=== PATIENT | male | born 1955 | race Caucasian/White ===

== ENCOUNTER 2019-11-10 10:32 | Outpatient (REF) | payer MEDICARE, SELFPAY ==
[2019-11-10 13:30] LABS: MANUAL DIFF FLAG NO
[2019-11-10 13:37] LABS: Basophils Percent Auto 0.7 % (0-2); Eosinophils Absolute Auto 0.2 X10*3/uL (0.0-0.4); Eosinophils Percent Auto 3.6 % (0-4); Hematocrit 41.3 % (42-52); Hemoglobin 13.5 g/dl (14.0-18.0); Imm Gran Abs Auto 0.02 X10*3/uL (0.00-0.03); Imm Gran Pct Auto 0.3 % (0.0-0.4); Lymphocytes Absolute Auto 1.6 X10*3/uL (1.2-4.9); Lymphocytes Percent Auto 26.9 % (20-40); Mean Corpuscular HGB Conc 32.7 g/dl (31.0-36.0); Mean Corpuscular Hemoglobin 32.8 pg (27.0-33.0); Mean Corpuscular Volume 100.2 fL (80-98); Mean Platelet Volume 10.1 fL (9.4-12.4); Monocytes Absolute Auto 0.6 X10*3/uL (0.1-1.2); Monocytes Percent Auto 10.5 % (2-11); Neutrophils Absolute Auto 3.4 X10*3/uL (2.0-8.3); Platelet Count 230 X10*3/uL (160-400); Red Blood Count 4.12 X10*6/uL (4.60-5.80); Red Cell Distribution Width 13.6 % (11.0-16.0); White Blood Count 5.8 X10*3/uL (4.8-10.8)
[2019-11-10 13:47] LABS: INTERNATIONAL NORM RATIO 2.5 (0.9-1.1); Prothrombin Time 29.9 SEC (10.8-13.0)
[2019-11-10 14:23] LABS: Alanine Aminotransferase 29 U/L (0-40); Albumin Level 4.1 g/dL (3.5-5.0); Alkaline Phosphatase 62 U/L (39-117); Anion Gap 12 (12-20); Aspartate Amino Transferase 27 U/L (5-37); Bilirubin Total 0.7 mg/dL (0.0-1.0); Blood Urea Nitrogen 23 mg/dL (9-16); Carbon Dioxide 28 mmol/L (22-29); Chloride 105 mmol/L (96-108); Estimated Glomerular Filt Rate > 60; Glucose Random 96 mg/dL (60-115); Potassium 5.5 mmol/l (3.3-5.1); Sodium 139 mmol/L (135-145); Total Protein 6.6 g/dL (6.5-8.0)
[2019-11-10 15:39] LABS: PSA,Total (Free>4and<10) 4.37 ng/mL (0.00-4.00)
[2019-11-13 14:37] LABS: Free Prostate Spec Ag 1.1 ng/mL; Percent Free Prostate Spec Ag 26 % (calc) (>25); Prostate Specific Ag Total 4.2 ng/mL (< OR = 4.0)
== END 2019-11-10 10:33 | disposition home or self-care (01) ==
LOC: HO.10HDL 10:32
PROVIDERS: PCP Internal Medicine; Visit Provider Internal Medicine
DX: I48.91 Unspecified atrial fibrillation (principal)
CPT/HCPCS: 36415; 80053; 84153; 85025; 85610

== ENCOUNTER 2019-12-15 08:00 | Outpatient (REF) | payer MEDICARE, SELFPAY ==
[2019-12-15 10:35] LABS: INTERNATIONAL NORM RATIO 2.4 (0.9-1.1); Prothrombin Time 29.2 SEC (10.8-13.0)
== END 2019-12-15 08:01 | disposition home or self-care (01) ==
LOC: HO.10HDL 08:00
PROVIDERS: Visit Provider Internal Medicine
DX: I48.91 Unspecified atrial fibrillation (principal); Z95.2 Presence of prosthetic heart valve
CPT/HCPCS: 36415; 85610

== ENCOUNTER 2020-01-12 08:20 | Outpatient (REF) | payer MEDICARE, SELFPAY ==
[2020-01-12 10:21] LABS: INTERNATIONAL NORM RATIO 2.3 (0.9-1.1); Prothrombin Time 27.9 SEC (10.8-13.0)
== END 2020-01-12 08:21 | disposition home or self-care (01) ==
LOC: HO.10HDL 08:20
PROVIDERS: Visit Provider Internal Medicine
DX: I48.91 Unspecified atrial fibrillation (principal); Z95.2 Presence of prosthetic heart valve
CPT/HCPCS: 36415; 85610

== ENCOUNTER 2020-02-12 08:14 | Outpatient (REF) | payer MEDICARE, SELFPAY ==
[2020-02-12 11:18] LABS: Prothrombin Time 24.5 SEC (10.8-13.0)
== END 2020-02-12 08:15 | disposition home or self-care (01) ==
LOC: HO.10HDL 08:14
PROVIDERS: PCP Internal Medicine; Visit Provider Internal Medicine
DX: I48.91 Unspecified atrial fibrillation (principal); Z95.2 Presence of prosthetic heart valve; Z79.01 Long term (current) use of anticoagulants
CPT/HCPCS: 36415; 85610

== ENCOUNTER 2020-02-23 08:24 | Outpatient (REF) | payer MEDICARE, SELFPAY ==
[2020-02-23 10:36] LABS: INTERNATIONAL NORM RATIO 2.9 (0.9-1.1); Prothrombin Time 35.3 SEC (10.8-13.0)
== END 2020-02-23 08:25 | disposition home or self-care (01) ==
LOC: HO.10HDL 08:24
PROVIDERS: Visit Provider Internal Medicine
DX: I48.91 Unspecified atrial fibrillation (principal); Z95.2 Presence of prosthetic heart valve
CPT/HCPCS: 36415; 85610

== ENCOUNTER 2020-03-15 07:52 | Outpatient (REF) | payer MEDICARE, SELFPAY ==
[2020-03-15 10:18] LABS: INTERNATIONAL NORM RATIO 2.3 (0.9-1.1); Prothrombin Time 27.4 SEC (10.8-13.0)
== END 2020-03-15 07:53 | disposition home or self-care (01) ==
LOC: HO.10HDLR 07:52
PROVIDERS: Visit Provider Internal Medicine
DX: I48.91 Unspecified atrial fibrillation (principal); Z95.2 Presence of prosthetic heart valve
CPT/HCPCS: 36415; 85610

== ENCOUNTER 2020-04-11 07:51 | Outpatient (REF) | payer MEDICARE, SELFPAY ==
[2020-04-11 10:40] LABS: INTERNATIONAL NORM RATIO 2.2 (0.9-1.1)
== END 2020-04-11 07:52 | disposition home or self-care (01) ==
LOC: HO.10HDL 07:51
PROVIDERS: Visit Provider Internal Medicine
DX: I48.91 Unspecified atrial fibrillation (principal); Z95.2 Presence of prosthetic heart valve
CPT/HCPCS: 36415; 85610

== ENCOUNTER 2020-05-10 07:46 | Outpatient (REF) | payer MEDICARE, BC, SELFPAY ==
[2020-05-10 10:48] LABS: MANUAL DIFF FLAG NO
[2020-05-10 11:01] LABS: Basophils Percent Auto 0.5 % (0-2); Eosinophils Absolute Auto 0.3 X10*3/uL (0.0-0.4); Eosinophils Percent Auto 4.4 % (0-4); Hematocrit 44.9 % (42-52); Hemoglobin 14.8 g/dl (14.0-18.0); Imm Gran Abs Auto 0.02 X10*3/uL (0.00-0.03); Imm Gran Pct Auto 0.3 % (0.0-0.4); Lymphocytes Absolute Auto 1.4 X10*3/uL (1.2-4.9); Lymphocytes Percent Auto 24.2 % (20-40); Mean Corpuscular Volume 97.2 fL (80-98); Monocytes Absolute Auto 0.5 X10*3/uL (0.1-1.2); Monocytes Percent Auto 9.1 % (2-11); Neutrophils Absolute Auto 3.7 X10*3/uL (2.0-8.3); Neutrophils Percent Auto 61.5 % (45-73); Platelet Count 219 X10*3/uL (160-400); Red Blood Count 4.62 X10*6/uL (4.60-5.80); Red Cell Distribution Width 13.2 % (11.0-16.0); White Blood Count 5.9 X10*3/uL (4.8-10.8)
[2020-05-10 11:05] LABS: INTERNATIONAL NORM RATIO 2.2 (0.9-1.1); Prothrombin Time 26.8 SEC (10.8-13.0)
[2020-05-10 11:28] LABS: Alanine Aminotransferase 30 U/L (0-40); Albumin Level 4.2 g/dL (3.5-5.0); Alkaline Phosphatase 69 U/L (39-117); Anion Gap 12 (12-20); Aspartate Amino Transferase 23 U/L (5-37); Bilirubin Total 0.3 mg/dL (0.0-1.0); Blood Urea Nitrogen 24 mg/dL (9-16); Calcium 8.8 mg/dL (8.4-10.2); Carbon Dioxide 28 mmol/L (22-29); Chloride 105 mmol/L (96-108); Cholesterol 156 mg/dL; Estimated Glomerular Filt Rate > 60; Glucose Fasting 96 mg/dL (60-99); HDL Cholesterol 38 mg/dL; LDL Cholesterol Calculated 94 mg/dl; Potassium 4.8 mmol/L (3.3-5.1); Sodium 140 mmol/L (135-145); Total Protein 6.8 g/dL (6.5-8.0); Triglycerides 124 mg/dL
== END 2020-05-10 07:47 | disposition home or self-care (01) ==
LOC: HO.10HDLR 07:46
PROVIDERS: Visit Provider Internal Medicine
DX: I48.91 Unspecified atrial fibrillation (principal); I10 Essential (primary) hypertension; E78.00 Pure hypercholesterolemia, unspecified; Z95.2 Presence of prosthetic heart valve
CPT/HCPCS: 36415; 80053; 80061; 85025; 85610

== ENCOUNTER 2020-06-17 08:56 | Outpatient (REF) | payer MEDICARE, BC, SELFPAY ==
[2020-06-17 10:17] LABS: INTERNATIONAL NORM RATIO 3.4 (0.9-1.1); Prothrombin Time 41.4 SEC (10.8-13.0)
== END 2020-06-17 08:57 | disposition home or self-care (01) ==
LOC: HO.10HDL 08:56
PROVIDERS: Visit Provider Internal Medicine
DX: I48.91 Unspecified atrial fibrillation (principal); Z95.2 Presence of prosthetic heart valve
CPT/HCPCS: 36415; 85610

== ENCOUNTER 2020-07-15 08:38 | Outpatient (REF) | payer MEDICARE, BC, SELFPAY ==
[2020-07-15 10:42] LABS: INTERNATIONAL NORM RATIO 3.3 (0.9-1.1); Prothrombin Time 40.2 SEC (10.8-13.0)
== END 2020-07-15 08:39 | disposition home or self-care (01) ==
LOC: HO.10HDL 08:38
PROVIDERS: Visit Provider Internal Medicine
DX: I48.20 Chronic atrial fibrillation, unspecified (principal)
CPT/HCPCS: 36415; 85610

== ENCOUNTER 2020-08-14 08:42 | Outpatient (REF) | payer MEDICARE, BC, SELFPAY ==
[2020-08-14 10:20] LABS: INTERNATIONAL NORM RATIO 3.6 (0.9-1.1); Prothrombin Time 42.5 SEC (9.9-13.0)
== END 2020-08-14 08:43 | disposition home or self-care (01) ==
LOC: HO.10HDL 08:42
PROVIDERS: Visit Provider Internal Medicine
DX: I48.20 Chronic atrial fibrillation, unspecified (principal)
CPT/HCPCS: 36415; 85610

== ENCOUNTER 2020-09-17 12:30 | Outpatient (REF) | payer MEDICARE, BC, SELFPAY ==
[2020-09-17 13:26] LABS: INTERNATIONAL NORM RATIO 3.5 (0.9-1.1); Prothrombin Time 40.3 SEC (9.9-13.0)
== END 2020-09-17 12:31 | disposition home or self-care (01) ==
LOC: HO.10HDL 12:30
PROVIDERS: Visit Provider Internal Medicine
DX: I48.20 Chronic atrial fibrillation, unspecified (principal)
CPT/HCPCS: 36415; 85610

== ENCOUNTER 2020-10-09 10:23 | Outpatient (REF) | payer MEDICARE, BC, SELFPAY ==
[2020-10-09 10:56] LABS: INTERNATIONAL NORM RATIO 2.6 (0.9-1.1); Prothrombin Time 30.1 SEC (9.9-13.0)
== END 2020-10-09 10:24 | disposition home or self-care (01) ==
LOC: HO.10HDLR 10:23
PROVIDERS: Visit Provider Internal Medicine
DX: I48.20 Chronic atrial fibrillation, unspecified (principal); Z95.2 Presence of prosthetic heart valve
CPT/HCPCS: 36415; 85610

== ENCOUNTER 2020-10-11 09:34 | Outpatient (REF) | payer MEDICARE, BC, SELFPAY ==
[2020-10-11 10:29] LABS: MANUAL DIFF FLAG NO
[2020-10-11 10:37] LABS: Basophils Percent Auto 0.7 % (0-2); Eosinophils Absolute Auto 0.2 X10*3/uL (0.0-0.4); Eosinophils Percent Auto 3.7 % (0-4); Hematocrit 41.2 % (42-52); Hemoglobin 13.8 g/dl (14.0-18.0); Imm Gran Abs Auto 0.01 X10*3/uL (0.00-0.03); Imm Gran Pct Auto 0.2 % (0.0-0.4); Lymphocytes Absolute Auto 1.6 X10*3/uL (1.2-4.9); Lymphocytes Percent Auto 26.3 % (20-40); Mean Corpuscular HGB Conc 33.5 g/dl (31.0-36.0); Mean Corpuscular Hemoglobin 31.9 pg (27.0-33.0); Mean Corpuscular Volume 95.4 fL (80-98); Mean Platelet Volume 9.7 fL (9.4-12.4); Monocytes Absolute Auto 0.6 X10*3/uL (0.1-1.2); Monocytes Percent Auto 9.4 % (2-11); Neutrophils Absolute Auto 3.5 X10*3/uL (2.0-8.3); Neutrophils Percent Auto 59.7 % (45-73); Platelet Count 200 X10*3/uL (160-400); Red Blood Count 4.32 X10*6/uL (4.60-5.80); Red Cell Distribution Width 13.1 % (11.0-16.0); White Blood Count 5.9 X10*3/uL (4.8-10.8)
[2020-10-11 10:56] LABS: Alanine Aminotransferase 20 U/L (0-40); Alkaline Phosphatase 66 U/L (39-117); Anion Gap 11 (12-20); Aspartate Amino Transferase 28 U/L (5-37); Bilirubin Total 0.8 mg/dL (0.0-1.0); Blood Urea Nitrogen 19 mg/dL (9-16); Calcium 9.1 mg/dL (8.4-10.2); Carbon Dioxide 28 mmol/L (22-29); Chloride 105 mmol/L (96-108); Estimated Glomerular Filt Rate > 60; Glucose Random 101 mg/dL (60-115); Potassium 4.9 mmol/L (3.3-5.1); Sodium 139 mmol/L (135-145); Total Protein 6.5 g/dL (6.5-8.0)
== END 2020-10-11 09:35 | disposition home or self-care (01) ==
LOC: HO.10HDL 09:34
PROVIDERS: Visit Provider Internal Medicine
DX: I48.91 Unspecified atrial fibrillation (principal); I10 Essential (primary) hypertension; M19.90 Unspecified osteoarthritis, unspecified site
CPT/HCPCS: 36415; 80053; 85025

== ENCOUNTER 2020-11-08 08:07 | Outpatient (REF) | payer MEDICARE, BC, SELFPAY ==
[2020-11-08 10:30] LABS: INTERNATIONAL NORM RATIO 3.3 (0.9-1.1); Prothrombin Time 38.1 SEC (9.9-13.0)
== END 2020-11-08 08:08 | disposition home or self-care (01) ==
LOC: HO.10HDLR 08:07
PROVIDERS: Visit Provider Internal Medicine
DX: I48.20 Chronic atrial fibrillation, unspecified (principal)
CPT/HCPCS: 36415; 85610

== ENCOUNTER 2020-12-13 08:41 | Outpatient (REF) | payer MEDICARE, BC, SELFPAY ==
[2020-12-13 10:40] LABS: INTERNATIONAL NORM RATIO 2.3 (0.9-1.1); Prothrombin Time 26.2 SEC (9.9-13.0)
== END 2020-12-13 08:42 | disposition home or self-care (01) ==
LOC: HO.10HDLR 08:41
PROVIDERS: Visit Provider Internal Medicine
DX: I48.20 Chronic atrial fibrillation, unspecified (principal)
CPT/HCPCS: 36415; 85610

== ENCOUNTER 2021-01-17 08:25 | Outpatient (REF) | payer MEDICARE, BC, SELFPAY ==
[2021-01-17 12:24] LABS: INTERNATIONAL NORM RATIO 1.6 (0.9-1.1); Prothrombin Time 17.9 SEC (9.9-13.0)
== END 2021-01-17 08:26 | disposition home or self-care (01) ==
LOC: HO.10HDLR 08:25
PROVIDERS: Visit Provider Internal Medicine
DX: I48.20 Chronic atrial fibrillation, unspecified (principal)
CPT/HCPCS: 36415; 85610

== ENCOUNTER 2021-02-17 08:12 | Outpatient (REF) | payer MEDICARE, BC, SELFPAY ==
[2021-02-17 10:33] LABS: INTERNATIONAL NORM RATIO 4.4 (0.9-1.1); Prothrombin Time 51.8 SEC (9.9-13.0)
== END 2021-02-17 08:13 | disposition home or self-care (01) ==
LOC: HO.10HDLR 08:12
PROVIDERS: Visit Provider Internal Medicine
DX: I48.20 Chronic atrial fibrillation, unspecified (principal)
CPT/HCPCS: 36415; 85610

== ENCOUNTER 2021-02-27 08:42 | Outpatient (REF) | payer MEDICARE, BC, SELFPAY ==
[2021-02-27 10:52] LABS: INTERNATIONAL NORM RATIO 2.5 (0.9-1.1); Prothrombin Time 29.2 SEC (9.9-13.0)
== END 2021-02-27 08:43 | disposition home or self-care (01) ==
LOC: HO.10HDL 08:42
PROVIDERS: Visit Provider Internal Medicine
DX: I48.20 Chronic atrial fibrillation, unspecified (principal)
CPT/HCPCS: 36415; 85610

== ENCOUNTER 2021-03-13 08:52 | Outpatient (REF) | payer MEDICARE, BC, SELFPAY ==
[2021-03-13 10:53] LABS: INTERNATIONAL NORM RATIO 2.6 (0.9-1.1); Prothrombin Time 29.9 SEC (9.9-13.0)
== END 2021-03-13 08:53 | disposition home or self-care (01) ==
LOC: HO.10HDLR 08:52
PROVIDERS: Visit Provider Internal Medicine
DX: I48.20 Chronic atrial fibrillation, unspecified (principal)
CPT/HCPCS: 36415; 85610

== ENCOUNTER 2021-04-10 10:49 | Outpatient (REF) | payer MEDICARE, BC, SELFPAY ==
[2021-04-10 13:50] LABS: INTERNATIONAL NORM RATIO 2.2 (0.9-1.1); Prothrombin Time 25.6 SEC (9.9-13.0)
== END 2021-04-10 10:50 | disposition home or self-care (01) ==
LOC: HO.10HDLR 10:49
PROVIDERS: Visit Provider Internal Medicine
DX: I48.91 Unspecified atrial fibrillation (principal); Z95.2 Presence of prosthetic heart valve
CPT/HCPCS: 36415; 85610

== ENCOUNTER 2021-04-11 10:00 | Outpatient (REF) | payer MEDICARE, BC, SELFPAY ==
[2021-04-11 12:06] LABS: MANUAL DIFF FLAG NO
[2021-04-11 12:08] LABS: Basophils Percent Auto 0.7 % (0-2); Eosinophils Absolute Auto 0.1 X10*3/uL (0.0-0.4); Eosinophils Percent Auto 2.9 % (0-4); Hematocrit 43.1 % (42.0-52.0); Hemoglobin 14.1 g/dl (14.0-18.0); Imm Gran Abs Auto 0.01 X10*3/uL (0.00-0.03); Imm Gran Pct Auto 0.2 % (0.0-0.4); Lymphocytes Absolute Auto 1.4 X10*3/uL (1.2-4.9); Lymphocytes Percent Auto 31.5 % (20-40); Mean Corpuscular HGB Conc 32.7 g/dl (31.0-36.0); Mean Corpuscular Hemoglobin 31.1 pg (27.0-33.0); Mean Corpuscular Volume 95.1 fL (80.0-98.0); Mean Platelet Volume 9.7 fL (9.4-12.4); Monocytes Absolute Auto 0.6 X10*3/uL (0.1-1.2); Monocytes Percent Auto 13.4 % (2-11); Neutrophils Absolute Auto 2.3 x10*3/uL (2.0-8.3); Neutrophils Percent Auto 51.3 % (45-73); Platelet Count 210 X10*3/uL (160-400); Red Blood Count 4.53 X10*6/uL (4.60-5.80); Red Cell Distribution Width 14.6 % (11.0-16.0); White Blood Count 4.4 X10*3/uL (4.8-10.8)
[2021-04-11 12:35] LABS: INTERNATIONAL NORM RATIO 2.2 (0.9-1.1); Prothrombin Time 24.9 SEC (9.9-13.0)
[2021-04-11 12:36] LABS: Alanine Aminotransferase 31 U/L (0-40); Alkaline Phosphatase 69 U/L (39-117); Anion Gap 10 (12-20); Aspartate Amino Transferase 31 U/L (5-37); Bilirubin Total 0.7 mg/dL (0.0-1.0); Blood Urea Nitrogen 20 mg/dL (9-16); Calcium 9.1 mg/dL (8.4-10.2); Carbon Dioxide 27 mmol/L (22-29); Chloride 106 mmol/L (96-108); Estimated Glomerular Filt Rate > 60; Glucose Random 100 mg/dL (60-115); Potassium 5.3 mmol/L (3.3-5.1); Sodium 138 mmol/L (135-145); Total Protein 6.8 g/dL (6.5-8.0)
== END 2021-04-11 10:01 | disposition home or self-care (01) ==
LOC: HO.10HDL 10:00
PROVIDERS: Visit Provider Internal Medicine
DX: I48.91 Unspecified atrial fibrillation (principal); M19.90 Unspecified osteoarthritis, unspecified site; I10 Essential (primary) hypertension; K57.90 Diverticulosis of intestine, part unspecified, without perforation or abscess without bleeding
CPT/HCPCS: 36415; 80053; 85025; 85610

== ENCOUNTER 2021-05-09 10:16 | Outpatient (REF) | payer MEDICARE, BC, SELFPAY ==
[2021-05-09 10:48] LABS: INTERNATIONAL NORM RATIO 2.6 (0.9-1.1); Prothrombin Time 30.6 SEC (9.9-13.0)
== END 2021-05-09 10:17 | disposition home or self-care (01) ==
LOC: HO.LABR 10:16
PROVIDERS: PCP Internal Medicine; Visit Provider Internal Medicine
DX: I48.91 Unspecified atrial fibrillation (principal); Z95.2 Presence of prosthetic heart valve
CPT/HCPCS: 36415; 85610

== ENCOUNTER 2021-05-16 10:44 | Outpatient (REF) | payer MEDICARE, BC, SELFPAY ==
--- NOTE | 2021-05-16 10:51 | EMG_ITS ---
This is a 65-year-old man with a history of left upper extremity numbness in the 5th finger. He has had some ulnar surgery in the past. PHYSICAL EXAMINATION: There is no atrophy or fasciculations. Normal strength and sensation. IMPRESSION: Ulnar nerve entrapment. Nerve conduction EMG study: Mild compression palsy of the left ulnar nerve at the elbow. Normal EMG of the left C7-T1 innervated muscles. MD GORDO John/NEMESIO / [id number]
== END 2021-05-16 10:45 | disposition home or self-care (01) ==
LOC: HO.NEURO 10:44
PROVIDERS: PCP Internal Medicine; Visit Provider Internal Medicine
DX: G56.02 Carpal tunnel syndrome, left upper limb (principal)
CPT/HCPCS: 95885; 95910

== ENCOUNTER 2021-06-11 08:13 | Outpatient (REF) | payer MEDICARE, BC, SELFPAY ==
[2021-06-11 10:28] LABS: INTERNATIONAL NORM RATIO 3.2 (0.9-1.1); Prothrombin Time 37.7 SEC (9.9-13.0)
== END 2021-06-11 08:14 | disposition home or self-care (01) ==
LOC: HO.10HDL 08:13
PROVIDERS: Visit Provider Internal Medicine
DX: I48.91 Unspecified atrial fibrillation (principal); Z95.2 Presence of prosthetic heart valve
CPT/HCPCS: 36415; 85610

== ENCOUNTER 2021-07-14 09:41 | Outpatient (REF) | payer MEDICARE, BC, SELFPAY ==
[2021-07-14 10:42] LABS: INTERNATIONAL NORM RATIO 3.2 (0.9-1.1); Prothrombin Time 36.8 SEC (9.9-13.0)
[2021-07-14 10:51] LABS: Alanine Aminotransferase 26 U/L (0-40); Albumin Level 4.3 g/dL (3.5-5.0); Alkaline Phosphatase 85 U/L (39-117); Anion Gap 14 (12-20); Aspartate Amino Transferase 31 U/L (5-37); Blood Urea Nitrogen 20 mg/dL (9-16); Calcium 9.3 mg/dL (8.4-10.2); Carbon Dioxide 26 mmol/L (22-29); Chloride 105 mmol/L (96-108); Estimated Glomerular Filt Rate > 60; Glucose Random 107 mg/dL (60-115); Potassium 5.8 mmol/L (3.3-5.1); Sodium 139 mmol/L (135-145); Total Protein 7.4 g/dL (6.5-8.0)
== END 2021-07-14 09:42 | disposition home or self-care (01) ==
LOC: HO.10HDL 09:41
PROVIDERS: Visit Provider Internal Medicine
DX: I48.91 Unspecified atrial fibrillation (principal); M19.90 Unspecified osteoarthritis, unspecified site; I10 Essential (primary) hypertension; K57.90 Diverticulosis of intestine, part unspecified, without perforation or abscess without bleeding; Z95.2 Presence of prosthetic heart valve
CPT/HCPCS: 36415; 80053; 85610

== ENCOUNTER 2021-07-30 09:14 | Outpatient (REF) | payer MEDICARE, BC, SELFPAY ==
[2021-07-30 10:47] LABS: Anion Gap 10 (12-20); Blood Urea Nitrogen 20 mg/dL (9-16); Calcium 8.9 mg/dL (8.4-10.2); Carbon Dioxide 28 mmol/L (22-29); Chloride 106 mmol/L (96-108); Estimated Glomerular Filt Rate > 60; Glucose Random 106 mg/dL (60-115); Potassium 4.6 mmol/L (3.3-5.1); Sodium 139 mmol/L (135-145)
[2021-07-30 11:04] LABS: INTERNATIONAL NORM RATIO 2.8 (0.9-1.1); Prothrombin Time 32.6 SEC (9.9-13.0)
== END 2021-07-30 09:15 | disposition home or self-care (01) ==
LOC: HO.10HDLR 09:14
PROVIDERS: Visit Provider Internal Medicine
DX: I48.91 Unspecified atrial fibrillation (principal); I10 Essential (primary) hypertension; M19.90 Unspecified osteoarthritis, unspecified site
CPT/HCPCS: 36415; 80048; 85610

== ENCOUNTER 2021-08-15 10:04 | Outpatient (REF) | payer MEDICARE, BC, SELFPAY ==
[2021-08-15 10:43] LABS: INTERNATIONAL NORM RATIO 3.4 (0.9-1.1); Prothrombin Time 40.6 SEC (10.0-13.1)
== END 2021-08-15 10:05 | disposition home or self-care (01) ==
LOC: HO.10HDL 10:04
PROVIDERS: Visit Provider Internal Medicine
DX: I48.91 Unspecified atrial fibrillation (principal)
CPT/HCPCS: 36415; 85610

== ENCOUNTER 2021-09-01 07:43 | Outpatient (REF) | payer MEDICARE, BC, SELFPAY ==
[2021-09-01 10:21] LABS: MANUAL DIFF FLAG NO
[2021-09-01 10:23] LABS: Basophils Percent Auto 0.6 % (0-2); Eosinophils Absolute Auto 0.2 X10*3/uL (0.0-0.4); Hematocrit 41.4 % (42.0-52.0); Imm Gran Abs Auto 0.02 X10*3/uL (0.00-0.03); Imm Gran Pct Auto 0.4 % (0.0-0.4); Lymphocytes Absolute Auto 1.5 X10*3/uL (1.2-4.9); Lymphocytes Percent Auto 27.9 % (20-40); Mean Corpuscular HGB Conc 33.8 g/dl (31.0-36.0); Mean Corpuscular Hemoglobin 32.6 pg (27.0-33.0); Mean Corpuscular Volume 96.5 fL (80.0-98.0); Monocytes Absolute Auto 0.6 X10*3/uL (0.1-1.2); Monocytes Percent Auto 10.6 % (2-11); Neutrophils Absolute Auto 2.9 x10*3/uL (2.0-8.3); Neutrophils Percent Auto 56.5 % (45-73); Platelet Count 206 X10*3/uL (160-400); Red Blood Count 4.29 X10*6/uL (4.60-5.80); White Blood Count 5.2 X10*3/uL (4.8-10.8)
[2021-09-01 10:37] LABS: INTERNATIONAL NORM RATIO 3.2 (0.9-1.1); Prothrombin Time 38.5 SEC (10.0-13.1)
[2021-09-01 10:53] LABS: Alanine Aminotransferase 20 U/L (0-40); Albumin Level 4.1 g/dL (3.5-5.0); Alkaline Phosphatase 69 U/L (39-117); Anion Gap 9 (12-20); Aspartate Amino Transferase 24 U/L (5-37); Bilirubin Total 0.6 mg/dL (0.0-1.0); Blood Urea Nitrogen 26 mg/dL (9-16); Carbon Dioxide 28 mmol/L (22-29); Chloride 106 mmol/L (96-108); Cholesterol 157 mg/dL; Estimated Glomerular Filt Rate > 60; Glucose Fasting 98 mg/dL (60-99); HDL Cholesterol 37 mg/dL; LDL Cholesterol Calculated 90 mg/dl; Potassium 4.9 mmol/L (3.3-5.1); Sodium 138 mmol/L (135-145); Triglycerides 152 mg/dL
== END 2021-09-01 07:44 | disposition home or self-care (01) ==
LOC: HO.10HDLR 07:43
PROVIDERS: Visit Provider Internal Medicine
DX: E78.00 Pure hypercholesterolemia, unspecified (principal); I48.91 Unspecified atrial fibrillation
CPT/HCPCS: 36415; 80053; 80061; 85025; 85610

== ENCOUNTER 2021-10-16 09:28 | Outpatient (REF) | payer MEDICARE, BC, SELFPAY ==
[2021-10-16 10:33] LABS: INTERNATIONAL NORM RATIO 2.4 (0.9-1.1)
== END 2021-10-16 09:29 | disposition home or self-care (01) ==
LOC: HO.10HDLR 09:28
PROVIDERS: Visit Provider Internal Medicine
DX: I48.91 Unspecified atrial fibrillation (principal)
CPT/HCPCS: 36415; 85610

== ENCOUNTER 2021-11-14 09:50 | Outpatient (REF) | payer MEDICARE, BC, SELFPAY ==
[2021-11-14 10:43] LABS: INTERNATIONAL NORM RATIO 3.2 (0.9-1.1); Prothrombin Time 38.9 SEC (10.0-13.1)
== END 2021-11-14 09:51 | disposition home or self-care (01) ==
LOC: HO.10HDLR 09:50
PROVIDERS: Visit Provider Internal Medicine
DX: I48.91 Unspecified atrial fibrillation (principal)
CPT/HCPCS: 36415; 85610

== ENCOUNTER 2021-12-12 07:54 | Outpatient (REF) | payer MEDICARE, BC, SELFPAY ==
[2021-12-12 10:52] LABS: INTERNATIONAL NORM RATIO 2.7 (0.9-1.1); Prothrombin Time 32.3 SEC (10.0-13.1)
== END 2021-12-12 07:55 | disposition home or self-care (01) ==
LOC: HO.10HDLR 07:54
PROVIDERS: Visit Provider Internal Medicine
DX: I48.91 Unspecified atrial fibrillation (principal)
CPT/HCPCS: 36415; 85610

== ENCOUNTER 2022-01-09 10:10 | Outpatient (REF) | payer MEDICARE, BC, SELFPAY ==
[2022-01-09 10:41] LABS: INTERNATIONAL NORM RATIO 3.4 (0.9-1.1)
== END 2022-01-09 10:11 | disposition home or self-care (01) ==
LOC: HO.10HDLR 10:10
PROVIDERS: Visit Provider Internal Medicine
DX: I48.91 Unspecified atrial fibrillation (principal)
CPT/HCPCS: 36415; 85610

== ENCOUNTER 2022-02-13 08:32 | Outpatient (REF) | payer MEDICARE, BC, SELFPAY ==
[2022-02-13 10:41] LABS: INTERNATIONAL NORM RATIO 2.7 (0.9-1.1); Prothrombin Time 32.3 SEC (10.0-13.1)
== END 2022-02-13 08:33 | disposition home or self-care (01) ==
LOC: HO.10HDLR 08:32
PROVIDERS: Visit Provider Internal Medicine
DX: I48.91 Unspecified atrial fibrillation (principal)
CPT/HCPCS: 36415; 85610

== ENCOUNTER 2022-03-17 10:01 | Outpatient (REF) | payer MEDICARE, BC, SELFPAY | END 2022-03-17 10:02 | disposition home or self-care (01) | LOC: HO.10HDL 10:01 | PROVIDERS: Visit Provider Internal Medicine | DX: Z13.89 Encounter for screening for other disorder (principal) | CPT/HCPCS: 36415 ==

== ENCOUNTER 2022-03-23 09:05 | Outpatient (REF) | payer MEDICARE, BC, SELFPAY ==
[2022-03-23 10:54] LABS: INTERNATIONAL NORM RATIO 3.5 (0.9-1.1); Prothrombin Time 42.6 SEC (10.0-13.1)
== END 2022-03-23 09:06 | disposition home or self-care (01) ==
LOC: HO.10HDLR 09:05
PROVIDERS: Visit Provider Internal Medicine
DX: I48.91 Unspecified atrial fibrillation (principal)
CPT/HCPCS: 36415; 85610

== ENCOUNTER 2022-04-10 10:24 | Outpatient (REF) | payer MEDICARE, BC, SELFPAY ==
[2022-04-10 13:59] LABS: MANUAL DIFF FLAG NO
[2022-04-10 14:37] LABS: Basophils Percent Auto 0.5 % (0-2); Eosinophils Absolute Auto 0.2 X10*3/uL (0.0-0.4); Eosinophils Percent Auto 2.6 % (0-4); Hematocrit 44.1 % (42.0-52.0); Hemoglobin 14.7 g/dl (14.0-18.0); Imm Gran Abs Auto 0.02 X10*3/uL (0.00-0.03); Imm Gran Pct Auto 0.4 % (0.0-0.4); Lymphocytes Absolute Auto 1.5 X10*3/uL (1.2-4.9); Lymphocytes Percent Auto 25.6 % (20-40); Mean Corpuscular HGB Conc 33.3 g/dl (31.0-36.0); Mean Corpuscular Hemoglobin 32.2 pg (27.0-33.0); Mean Corpuscular Volume 96.5 fL (80.0-98.0); Mean Platelet Volume 9.6 fL (9.4-12.4); Monocytes Absolute Auto 0.6 X10*3/uL (0.1-1.2); Monocytes Percent Auto 10.4 % (2-11); Neutrophils Absolute Auto 3.5 x10*3/uL (2.0-8.3); Neutrophils Percent Auto 60.5 % (45-73); Platelet Count 248 X10*3/uL (160-400); Red Blood Count 4.57 X10*6/uL (4.60-5.80); Red Cell Distribution Width 13.7 % (11.0-16.0); White Blood Count 5.7 X10*3/uL (4.8-10.8)
[2022-04-10 15:03] LABS: INTERNATIONAL NORM RATIO 2.6 (0.9-1.1)
[2022-04-10 15:14] LABS: Alanine Aminotransferase 26 U/L (0-40); Albumin Level 4.1 g/dL (3.5-5.0); Alkaline Phosphatase 77 U/L (39-117); Anion Gap 11 (12-20); Aspartate Amino Transferase 28 U/L (5-37); Bilirubin Total 0.9 mg/dL (0.0-1.0); Blood Urea Nitrogen 19 mg/dL (9-16); Calcium 9.1 mg/dL (8.4-10.2); Carbon Dioxide 28 mmol/L (22-29); Chloride 104 mmol/L (96-108); Estimated Glomerular Filt Rate > 60; Glucose Random 97 mg/dL (60-115); Potassium 4.9 mmol/L (3.3-5.1); Sodium 138 mmol/L (135-145); Total Protein 7.1 g/dL (6.5-8.0)
== END 2022-04-10 10:25 | disposition home or self-care (01) ==
LOC: HO.10HDL 10:24
PROVIDERS: Visit Provider Internal Medicine
DX: I48.91 Unspecified atrial fibrillation (principal); I10 Essential (primary) hypertension; Z95.2 Presence of prosthetic heart valve; M19.90 Unspecified osteoarthritis, unspecified site
CPT/HCPCS: 36415; 80053; 85025; 85610

== ENCOUNTER 2022-05-01 14:37 | Outpatient (REF) | payer MEDICARE, BC, SELFPAY ==
--- NOTE | ~2022-05-01 | XR_ITS ---
EXAMINATION: XR SHOULDER, LEFT CLINICAL INFORMATION: Pain. COMPARISON: None available. TECHNIQUE: AP external rotation, Grashey, scapular Y, and axillary views of the left shoulder. FINDINGS: Bony alignment and mineralization are normal. The left glenohumeral joint is intact and shows mild peripheral osteophyte formation. The acromioclavicular and coracoclavicular intervals are normal. There is moderately severe osteoarthritic change of the acromioclavicular joint, with dense periarticular soft tissue calcification. There is a distal acromial osteophyte. There is calcific tendinitis of the left rotator cuff insertion. No fracture or dislocation is seen. There is no foreign body. No left pneumothorax is seen. There are intact sternotomy wires. XR/XR shoulder LT min 2V IMPRESSION: 1. There is mild osteoarthritic change of the left glenohumeral joint, and moderately severe osteoarthritic changes seen of the left coracoclavicular joint. 2. There is calcific tendinitis of the left rotator cuff insertion.
== END 2022-05-01 14:38 | disposition home or self-care (01) ==
LOC: HO.XRAY 14:37
PROVIDERS: PCP Internal Medicine; Visit Provider Internal Medicine
DX: M25.512 Pain in left shoulder (principal)
CPT/HCPCS: 73030

== ENCOUNTER 2022-05-13 07:31 | Outpatient (REF) | payer MEDICARE, BC, SELFPAY ==
[2022-05-13 10:59] LABS: INTERNATIONAL NORM RATIO 2.9 (0.9-1.1); Prothrombin Time 34.4 SEC (10.0-13.1)
== END 2022-05-13 07:32 | disposition home or self-care (01) ==
LOC: HO.10HDL 07:31
PROVIDERS: Visit Provider Internal Medicine
DX: I48.91 Unspecified atrial fibrillation (principal)
CPT/HCPCS: 36415; 85610

== ENCOUNTER 2022-06-09 10:57 | Outpatient (REF) | payer MEDICARE, BC, SELFPAY ==
[2022-06-09 11:45] LABS: INTERNATIONAL NORM RATIO 3.1 (0.9-1.1); Prothrombin Time 37.5 SEC (10.0-13.1)
== END 2022-06-09 10:58 | disposition home or self-care (01) ==
LOC: HO.LAB 10:57
PROVIDERS: PCP Internal Medicine; Visit Provider Internal Medicine
DX: I48.91 Unspecified atrial fibrillation (principal)
CPT/HCPCS: 36415; 85610

== ENCOUNTER → 2022-06-18 09:45 | Outpatient (BNVA) | payer MEDICARE, BC, SELFPAY | PROVIDERS: PCP Internal Medicine; Visit Provider Physician Assistant | DX: M75.22 Bicipital tendinitis, left shoulder (principal); M75.32 Calcific tendinitis of left shoulder; M19.012 Primary osteoarthritis, left shoulder | CPT/HCPCS: 99202 ==

== ENCOUNTER 2022-07-10 08:46 | Outpatient (REF) | payer MEDICARE, BC, SELFPAY ==
[2022-07-10 11:06] LABS: INTERNATIONAL NORM RATIO 3.1 (0.9-1.1); Prothrombin Time 37.7 SEC (10.0-13.1)
== END 2022-07-10 08:47 | disposition home or self-care (01) ==
LOC: HO.10HDL 08:46
PROVIDERS: Visit Provider Internal Medicine
DX: I48.91 Unspecified atrial fibrillation (principal)
CPT/HCPCS: 36415; 85610

== ENCOUNTER 2022-08-13 08:22 | Outpatient (REF) | payer MEDICARE, BC, SELFPAY | END 2022-08-13 08:23 | disposition home or self-care (01) | LOC: HO.10HDL 08:22 | PROVIDERS: Visit Provider Internal Medicine | DX: Z95.2 Presence of prosthetic heart valve (principal) | CPT/HCPCS: 36415; 85610 ==

== ENCOUNTER 2022-09-10 08:59 | Outpatient (REF) | payer MEDICARE, BC, SELFPAY ==
[2022-09-10 11:50] LABS: INTERNATIONAL NORM RATIO 2.8 (0.9-1.1); Prothrombin Time 34.5 SEC (11.1-13.3)
== END 2022-09-10 09:00 | disposition home or self-care (01) ==
LOC: HO.10HDL 08:59
PROVIDERS: Visit Provider Internal Medicine
DX: Z95.2 Presence of prosthetic heart valve (principal)
CPT/HCPCS: 36415; 85610

== ENCOUNTER 2022-10-14 09:42 | Outpatient (REF) | payer MEDICARE, BC, SELFPAY ==
[2022-10-14 10:23] LABS: INTERNATIONAL NORM RATIO 1.4 (0.9-1.1); Prothrombin Time 16.8 SEC (11.1-13.3)
== END 2022-10-14 09:43 | disposition home or self-care (01) ==
LOC: HO.10HDL 09:42
PROVIDERS: Visit Provider Internal Medicine
DX: Z95.2 Presence of prosthetic heart valve (principal)
CPT/HCPCS: 36415; 85610

== ENCOUNTER 2022-10-19 08:42 | Outpatient (REF) | payer MEDICARE, BC, SELFPAY ==
[2022-10-19 10:39] LABS: INTERNATIONAL NORM RATIO 2.1 (0.9-1.1)
== END 2022-10-19 08:43 | disposition home or self-care (01) ==
LOC: HO.10HDL 08:42
PROVIDERS: Visit Provider Internal Medicine
DX: Z95.2 Presence of prosthetic heart valve (principal)
CPT/HCPCS: 36415; 85610

== ENCOUNTER 2022-10-22 08:45 | Outpatient (REF) | payer MEDICARE, BC, SELFPAY ==
[2022-10-22 11:13] LABS: INTERNATIONAL NORM RATIO 2.3 (0.9-1.1); Prothrombin Time 27.5 SEC (11.1-13.3)
== END 2022-10-22 08:46 | disposition home or self-care (01) ==
LOC: HO.10HDL 08:45
PROVIDERS: Visit Provider Internal Medicine
DX: Z95.2 Presence of prosthetic heart valve (principal)
CPT/HCPCS: 36415; 85610

== ENCOUNTER 2022-10-27 09:04 | Outpatient (REF) | payer MEDICARE, BC, SELFPAY ==
[2022-10-27 10:53] LABS: INTERNATIONAL NORM RATIO 3.3 (0.9-1.1); Prothrombin Time 40.6 SEC (11.1-13.3)
== END 2022-10-27 09:05 | disposition home or self-care (01) ==
LOC: HO.10HDL 09:04
PROVIDERS: Visit Provider Internal Medicine
DX: Z95.2 Presence of prosthetic heart valve (principal)
CPT/HCPCS: 36415; 85610

== ENCOUNTER 2022-11-09 09:15 | Outpatient (REF) | payer MEDICARE, BC, SELFPAY ==
[2022-11-09 11:09] LABS: INTERNATIONAL NORM RATIO 4.1 (0.9-1.1); Prothrombin Time 50.1 SEC (11.1-13.3)
== END 2022-11-09 09:16 | disposition home or self-care (01) ==
LOC: HO.10HDL 09:15
PROVIDERS: Visit Provider Internal Medicine
DX: Z95.2 Presence of prosthetic heart valve (principal)
CPT/HCPCS: 36415; 85610

== ENCOUNTER 2022-11-13 07:27 | Outpatient (REF) | payer MEDICARE, BC, SELFPAY | END 2022-11-13 07:28 | disposition home or self-care (01) | LOC: HO.LAB 07:27 | PROVIDERS: PCP Internal Medicine; Visit Provider Internal Medicine | DX: Z12.5 Encounter for screening for malignant neoplasm of prostate (principal); I48.91 Unspecified atrial fibrillation; I10 Essential (primary) hypertension; M19.90 Unspecified osteoarthritis, unspecified site; Z95.2 Presence of prosthetic heart valve | CPT/HCPCS: 36415; 80053; 80061; 84153; 85025; 85610 ==

== ENCOUNTER 2022-12-10 08:28 | Outpatient (REF) | payer MEDICARE, BC, SELFPAY ==
[2022-12-10 10:46] LABS: Prothrombin Time 36.6 SEC (11.1-13.3)
== END 2022-12-10 08:29 | disposition home or self-care (01) ==
LOC: HO.10HDL 08:28
PROVIDERS: Visit Provider Internal Medicine
DX: Z95.2 Presence of prosthetic heart valve (principal)
CPT/HCPCS: 36415; 85610

== ENCOUNTER 2023-01-11 08:41 | Outpatient (REF) | payer MEDICARE, BC, SELFPAY ==
[2023-01-11 10:33] LABS: INTERNATIONAL NORM RATIO 3.7 (0.9-1.1); Prothrombin Time 45.5 SEC (11.1-13.3)
== END 2023-01-11 08:42 | disposition home or self-care (01) ==
LOC: HO.10HDL 08:41
PROVIDERS: Visit Provider Internal Medicine
DX: Z95.2 Presence of prosthetic heart valve (principal)
CPT/HCPCS: 36415; 85610

== ENCOUNTER 2023-02-16 09:16 | Outpatient (REF) | payer MEDICARE, BC, SELFPAY ==
[2023-02-16 11:23] LABS: Prothrombin Time 48.2 SEC (11.1-13.3)
== END 2023-02-16 09:17 | disposition home or self-care (01) ==
LOC: HO.HMGCLDS 09:16
PROVIDERS: PCP Internal Medicine; Visit Provider Internal Medicine
DX: Z86.79 Personal history of other diseases of the circulatory system (principal)
CPT/HCPCS: 36415; 85610

== ENCOUNTER 2023-02-23 07:14 | Outpatient (REF) | payer MEDICARE, BC, SELFPAY ==
[2023-02-23 11:55] LABS: INTERNATIONAL NORM RATIO 2.6 (0.9-1.1); Prothrombin Time 31.4 SEC (11.1-13.3)
== END 2023-02-23 07:15 | disposition home or self-care (01) ==
LOC: HO.HMGCLR 07:14
PROVIDERS: PCP Internal Medicine; Visit Provider Internal Medicine
DX: Z95.2 Presence of prosthetic heart valve (principal)
CPT/HCPCS: 36415; 85610

== ENCOUNTER 2023-03-11 09:50 | Outpatient (REF) | payer MEDICARE, BC, SELFPAY ==
[2023-03-11 13:25] LABS: Prothrombin Time 36.8 SEC (11.1-13.3)
== END 2023-03-11 09:51 | disposition home or self-care (01) ==
LOC: HO.HMGCLR 09:50
PROVIDERS: PCP Internal Medicine; Visit Provider Internal Medicine
DX: Z95.2 Presence of prosthetic heart valve (principal)
CPT/HCPCS: 36415; 85610

== ENCOUNTER 2023-04-09 08:43 | Outpatient (REF) | payer MEDICARE, BC, SELFPAY ==
[2023-04-09 11:28] LABS: INTERNATIONAL NORM RATIO 2.8 (0.9-1.1); Prothrombin Time 34.7 SEC (11.1-13.3)
== END 2023-04-09 08:44 | disposition home or self-care (01) ==
LOC: HO.HMGCLR 08:43
PROVIDERS: PCP Internal Medicine; Visit Provider Internal Medicine
DX: Z95.2 Presence of prosthetic heart valve (principal)
CPT/HCPCS: 36415; 85610

== ENCOUNTER 2023-05-10 08:29 | Outpatient (REF) | payer MEDICARE, BC, SELFPAY ==
[2023-05-10 10:34] LABS: INTERNATIONAL NORM RATIO 3.6 (0.9-1.1)
== END 2023-05-10 08:30 | disposition home or self-care (01) ==
LOC: HO.HMGCLR 08:29
PROVIDERS: PCP Internal Medicine; Visit Provider Internal Medicine
DX: Z95.2 Presence of prosthetic heart valve (principal)
CPT/HCPCS: 36415; 85610

== ENCOUNTER 2023-06-09 10:52 | Outpatient (REF) | payer MEDICARE, BC, SELFPAY ==
[2023-06-09 13:10] LABS: INTERNATIONAL NORM RATIO 4.5 (0.9-1.1); Prothrombin Time 54.3 SEC (11.1-13.3)
== END 2023-06-09 10:53 | disposition home or self-care (01) ==
LOC: HO.HMGCLR 10:52
PROVIDERS: PCP Internal Medicine; Visit Provider Internal Medicine
DX: Z95.2 Presence of prosthetic heart valve (principal)
CPT/HCPCS: 36415; 85610

== ENCOUNTER 2023-06-18 09:01 | Outpatient (REF) | payer MEDICARE, BC, SELFPAY ==
[2023-06-18 10:55] LABS: INTERNATIONAL NORM RATIO 3.4 (0.9-1.1); Prothrombin Time 41.3 SEC (11.1-13.3)
== END 2023-06-18 09:02 | disposition home or self-care (01) ==
LOC: HO.HMGCLR 09:01
PROVIDERS: PCP Internal Medicine; Visit Provider Internal Medicine
DX: Z95.2 Presence of prosthetic heart valve (principal)
CPT/HCPCS: 36415; 85610

== ENCOUNTER 2023-07-12 09:26 | Outpatient (REF) | payer MEDICARE, BC, SELFPAY ==
[2023-07-12 10:43] LABS: INTERNATIONAL NORM RATIO 4.3 (0.9-1.1); Prothrombin Time 52.5 SEC (11.1-13.3)
== END 2023-07-12 09:27 | disposition home or self-care (01) ==
LOC: HO.HMGCLR 09:26
PROVIDERS: PCP Internal Medicine; Visit Provider Internal Medicine
DX: Z95.2 Presence of prosthetic heart valve (principal)
CPT/HCPCS: 36415; 85610

== ENCOUNTER 2023-08-13 10:16 | Outpatient (REF) | payer MEDICARE, BC, SELFPAY ==
[2023-08-13 13:29] LABS: INTERNATIONAL NORM RATIO 3.4 (0.9-1.1); Prothrombin Time 41.6 SEC (11.1-13.3)
== END 2023-08-13 10:17 | disposition home or self-care (01) ==
LOC: HO.HMGCLR 10:16
PROVIDERS: PCP Internal Medicine; Visit Provider Internal Medicine
DX: Z95.2 Presence of prosthetic heart valve (principal)
CPT/HCPCS: 36415; 85610

== ENCOUNTER 2023-08-24 13:34 | Outpatient (REF) | payer MEDICARE, BC, SELFPAY ==
--- NOTE | ~2023-08-24 | XR_ITS ---
EXAMINATION: XR HAND, RIGHT CLINICAL INFORMATION: Right thumb pain; nodule. COMPARISON: None available. TECHNIQUE: PA, lateral, and oblique views of the right hand. FINDINGS: Bony alignment and mineralization are normal. There is moderate osteoarthritic change of the interphalangeal joint of the thumb, with a large posterior osteophyte. There is moderate atherosclerotic change of the second and third distal interphalangeal joints and of the fourth proximal interphalangeal joint. There is moderate degenerative change of the second and third metacarpophalangeal joints. There is mild to moderate osteoarthritic change of the first through third carpometacarpal joints. No fracture or dislocation is seen. The proximal and distal carpal rows are intact. No abnormal bony erosive change is seen. There is no focal soft tissue swelling, gas or foreign body. XR/XR hand RT min 3V IMPRESSION: There is multi-focal osteoarthritic change of the right hand and wrist. In particular, there is moderate osteoarthritic change of the interphalangeal joint of the thumb, with a posterior osteophyte. No fracture or dislocation is seen.
--- NOTE | ~2023-08-24 | XR_ITS ---
EXAMINATION: XR CERVICAL SPINE CLINICAL INFORMATION: Neck pain. COMPARISON: None available. TECHNIQUE: 6 views of the cervical spine, inclusive of flexion and extension views, were obtained. FINDINGS: Vertebral body heights are normal. There is mild posterior disc space narrowing at C2-C3. At C3-C4, there is moderate disc space narrowing and a 2 mm retrolisthesis. At C4-C5 through C7-T1, there is moderate disc space narrowing. No acute fracture or spondylolisthesis is seen. There is multi-level cervical endplate arthropathy. The posterior elements are intact. There is left neural foraminal narrowing at C2-C3, right neural foraminal narrowing at C3-C4, bilateral neural foraminal narrowing at C4-C5 and left neural foraminal narrowing at C5-C6. The dens is intact. No prevertebral soft tissue swelling is seen. XR/XR cervical spine 5V IMPRESSION: 1. There is mild degenerative disc disease at C2-C3, and moderate degenerative disc disease extends from C3-C4 through C7-T1. 2. There is multi-level cervical endplate arthropathy. 3. There is multi-level bilateral neural foraminal narrowing, as detailed.
== END 2023-08-24 13:35 | disposition home or self-care (01) ==
LOC: HO.XRAY 13:34
PROVIDERS: PCP Internal Medicine; Visit Provider Internal Medicine
DX: M54.2 Cervicalgia (principal); M79.641 Pain in right hand
CPT/HCPCS: 72050; 73130

== ENCOUNTER 2023-09-10 11:28 | Outpatient (REF) | payer MEDICARE, BC, SELFPAY ==
[2023-09-10 13:25] LABS: INTERNATIONAL NORM RATIO 3.3 (0.9-1.1); Prothrombin Time 40.3 SEC (11.1-13.3)
== END 2023-09-10 11:29 | disposition home or self-care (01) ==
LOC: HO.HMGCLR 11:28
PROVIDERS: PCP Internal Medicine; Visit Provider Internal Medicine
DX: Z95.2 Presence of prosthetic heart valve (principal)
CPT/HCPCS: 36415; 85610

== ENCOUNTER 2023-10-12 14:44 | Outpatient (REF) | payer MEDICARE, BC, SELFPAY ==
[2023-10-12 16:26] LABS: INTERNATIONAL NORM RATIO 2.4 (0.9-1.1); Prothrombin Time 29.7 SEC (11.1-13.3)
== END 2023-10-12 14:45 | disposition home or self-care (01) ==
LOC: HO.HMGCLR 14:44
PROVIDERS: PCP Internal Medicine; Visit Provider Internal Medicine
DX: Z95.2 Presence of prosthetic heart valve (principal)
CPT/HCPCS: 36415; 85610

== ENCOUNTER 2023-11-09 08:54 | Outpatient (REF) | payer MEDICARE, BC, SELFPAY ==
[2023-11-09 10:09] LABS: INTERNATIONAL NORM RATIO 4.4 (0.9-1.1)
== END 2023-11-09 08:55 | disposition home or self-care (01) ==
LOC: HO.HMGCLR 08:54
PROVIDERS: PCP Internal Medicine; Visit Provider Internal Medicine
DX: Z95.2 Presence of prosthetic heart valve (principal)
CPT/HCPCS: 36415; 85610

== ENCOUNTER 2023-11-29 08:17 | Outpatient (REF) | payer MEDICARE, BC, SELFPAY ==
[2023-11-29 10:23] LABS: INTERNATIONAL NORM RATIO 3.9 (0.9-1.1); Prothrombin Time 45.7 SEC (10.9-12.4)
== END 2023-11-29 08:18 | disposition home or self-care (01) ==
LOC: HO.HMGCLR 08:17
PROVIDERS: PCP Internal Medicine; Visit Provider Internal Medicine
DX: Z95.2 Presence of prosthetic heart valve (principal)
CPT/HCPCS: 36415; 85610

== ENCOUNTER 2023-12-13 13:29 | Outpatient (REF) | payer MEDICARE, BC, SELFPAY ==
[2023-12-13 16:24] LABS: INTERNATIONAL NORM RATIO 3.7 (0.9-1.1); Prothrombin Time 43.2 SEC (10.9-12.4)
== END 2023-12-13 13:30 | disposition home or self-care (01) ==
LOC: HO.HMGCLR 13:29
PROVIDERS: PCP Internal Medicine; Visit Provider Internal Medicine
DX: Z95.2 Presence of prosthetic heart valve (principal)
CPT/HCPCS: 36415; 85610

== ENCOUNTER 2024-01-11 11:02 | Outpatient (REF) | payer MEDICARE, BC, SELFPAY ==
[2024-01-11 14:38] LABS: Prothrombin Time 35.6 SEC (10.9-12.4)
== END 2024-01-11 11:03 | disposition home or self-care (01) ==
LOC: HO.HMGCLR 11:02
PROVIDERS: PCP Internal Medicine; Visit Provider Internal Medicine
DX: I48.91 Unspecified atrial fibrillation (principal)
CPT/HCPCS: 36415; 85610

== ENCOUNTER 2024-02-11 11:26 | Outpatient (REF) | payer MEDICARE, BC, SELFPAY ==
[2024-02-11 13:16] LABS: INTERNATIONAL NORM RATIO 3.3 (0.9-1.1)
== END 2024-02-11 11:27 | disposition home or self-care (01) ==
LOC: HO.HMGCLR 11:26
PROVIDERS: PCP Internal Medicine; Visit Provider Internal Medicine
DX: I48.91 Unspecified atrial fibrillation (principal)
CPT/HCPCS: 36415; 85610

== ENCOUNTER 2024-03-14 11:50 | Outpatient (REF) | payer MEDICARE, BC, SELFPAY ==
[2024-03-14 13:37] LABS: INTERNATIONAL NORM RATIO 3.3 (0.9-1.1)
== END 2024-03-14 11:51 | disposition home or self-care (01) ==
LOC: HO.HMGCLR 11:50
PROVIDERS: PCP Internal Medicine; Visit Provider Internal Medicine
DX: I48.91 Unspecified atrial fibrillation (principal)
CPT/HCPCS: 36415; 85610

== ENCOUNTER 2024-04-11 09:41 | Outpatient (REF) | payer MEDICARE, BC, SELFPAY ==
[2024-04-11 13:30] LABS: INTERNATIONAL NORM RATIO 2.3 (0.9-1.1); Prothrombin Time 27.2 SEC (10.9-12.4)
== END 2024-04-11 09:42 | disposition home or self-care (01) ==
LOC: HO.HMGCLR 09:41
PROVIDERS: PCP Internal Medicine; Visit Provider Internal Medicine
DX: I48.91 Unspecified atrial fibrillation (principal)
CPT/HCPCS: 36415; 85610

== ENCOUNTER 2024-05-09 08:01 | Outpatient (REF) | payer MEDICARE, BC, SELFPAY ==
[2024-05-09 10:25] LABS: Appearance Urine Clear; Color Urine Yellow; Glucose Urine UA Negative (Negative); Leukocyte Esterase Urine Negative (Negative); Nitrite Urine Negative (Negative); Specific Gravity - Urine 1.015 (1.005-1.025); Urine Blood Negative (Negative); Urine Ketones Negative (Negative); Urine Protein Negative (Neg-Trace)
[2024-05-09 10:26] LABS: MANUAL DIFF FLAG NO
[2024-05-09 10:44] LABS: Basophils Percent Auto 0.6 % (0-2); Eosinophils Absolute Auto 0.2 X10*3/uL (0.0-0.4); Eosinophils Percent Auto 3.5 % (0-4); Hematocrit 42.6 % (42.0-52.0); Hemoglobin 14.6 g/dl (14.0-18.0); INTERNATIONAL NORM RATIO 2.2 (0.9-1.1); Imm Gran Abs Auto 0.02 X10*3/uL (0.00-0.03); Imm Gran Pct Auto 0.3 % (0.0-0.4); Lymphocytes Absolute Auto 1.5 X10*3/uL (1.2-4.9); Lymphocytes Percent Auto 24.7 % (20-40); Mean Corpuscular HGB Conc 34.3 g/dl (31.0-36.0); Mean Corpuscular Hemoglobin 33.9 pg (27.0-33.0); Mean Corpuscular Volume 98.8 fL (80.0-98.0); Monocytes Absolute Auto 0.7 X10*3/uL (0.1-1.2); Monocytes Percent Auto 10.6 % (2-11); Neutrophils Absolute Auto 3.7 x10*3/uL (2.0-8.3); Neutrophils Percent Auto 60.3 % (45-73); Platelet Count 200 X10*3/uL (160-400); Prothrombin Time 26.2 SEC (10.9-12.4); Red Blood Count 4.31 X10*6/uL (4.60-5.80); Red Cell Distribution Width 13.9 % (11.0-16.0); White Blood Count 6.2 X10*3/uL (4.8-10.8)
[2024-05-09 11:30] LABS: Prostate Specific Antigen 4.49 ng/mL (<0.05-4.0)
[2024-05-09 11:31] LABS: Alanine Aminotransferase 23 U/L (0-40); Alkaline Phosphatase 72 U/L (39-117); Anion Gap 8 (12-20); Aspartate Amino Transferase 34 U/L (5-37); Blood Urea Nitrogen 18 mg/dL (9-16); Calcium 9.1 mg/dL (8.4-10.2); Carbon Dioxide 28 mmol/L (22-29); Chloride 109 mmol/L (96-108); Cholesterol 138 mg/dL (<200); Estimated Glomerular Filt Rate > 60; Glucose Fasting 104 mg/dL (60-99); HDL Cholesterol 39 mg/dL (>40); LDL Cholesterol Calculated 65 mg/dL (<100); Potassium 4.4 mmol/L (3.3-5.1); Sodium 141 mmol/L (135-145); Total Protein 7.2 g/dL (6.5-8.0); Triglycerides 172 mg/dL (<150)
== END 2024-05-09 08:02 | disposition home or self-care (01) ==
LOC: HO.HMGCLDS 08:01
PROVIDERS: Visit Provider Internal Medicine
DX: I48.91 Unspecified atrial fibrillation (principal); Z12.5 Encounter for screening for malignant neoplasm of prostate
CPT/HCPCS: 36415; 80053; 80061; 81003; 84153; 85025; 85610

== ENCOUNTER 2024-05-18 14:01 | Outpatient (AMB) | payer MEDICARE, BC, SELFPAY ==
--- NOTE | 2024-05-18 14:06 | MHC.PC.OV ---
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: No Accompanied by: Self / Same As Patient Allergies No Known Allergies [No Known Allergies*] Allergy (Unverified 05/18/24 14:06) Tobacco use date assessed: 05/18/24 Fall risk assessment: No Falls in past year Dental Screening Dental Screen Date: 05/18/24 Did you have a dental visit in the last 12 months?: Yes Did you have a dental problem in the last 6 months where you did not have access to dental care?: No HPI HPI Comments History of Present Illness Details The patient is a 68 year old male with a past medical history of htn, atrial fibrillation, s/p AVR, [place], colon polyps, OA presenting for follow up. Last seen by pcp in November CV: On lisiopril, warfarin, metoprolol. BP 136/70. Denies chest pain. Follows with Dr Ospina cardiology MSK: On allopurinol 100mg daily Urology: BPH: Follows with [facility] [place]: Was on cpap five or six years ago. Could not tolerate. Colonoscopy: Every 5 years for h/o polyps. ROS CONSTITUTIONAL: Denies weight loss, fever and chills. HEENT: Denies changes in vision and hearing. RESPIRATORY: Denies SOB and cough. CV: Denies palpitations and CP GI: Denies abdominal pain, nausea, vomiting and diarrhea. : Denies dysuria and urinary frequency. MSK: Denies new myalgia and joint pain. SKIN: Denies rash and pruritus. NEUROLOGICAL: Denies headache PSYCHIATRIC: Denies recent changes in mood. PHYSICAL EXAM: GENERAL: Alert and oriented x 3. NAD EYES: EOMI. Anicteric. HENT: Moist mucous membranes. No scleral icterus. No cervical lymphadenopathy. LUNGS: Clear to auscultation bilaterally. CARDIOVASCULAR: Regular rate and rhythm. No murmur. No JVD. ABDOMEN: Soft, non-tender +bs EXTREMITIES: No edema. Non-tender. SKIN: No rashes or lesions. Warm. NEUROLOGIC: No focal neurological deficits. CN II-XII grossly intact PSYCHIATRIC: Cooperative. Appropriate mood and affect [facility] Medical History Arthritis Hypertension Surgical History History of heart valve replacement History of left knee surgery Family History Mother No problems noted. Father No problems noted. Social History Housing: House Patient Tobacco Use Status: Never used Tobacco e-Cigarette/Vaping Use: Never Used service: No Current occupational status: retired Current occupation: right handed Cognitive needs: No Hearing needs: No Vision needs: No Questionnaire PHQ-9 Over the last 2 weeks, how often have you been bothered by any of the following problems? 1. Little interest or pleasure in doing things: not at all 2. Feeling down, depressed, or hopeless: not at all 3. Trouble falling or staying asleep, or sleeping too much: not at all 4. Feeling tired or having little energy: not at all 5. Poor appetite or overeating: not at all 6. Feeling bad about yourself - or that you are a failure or have let yourself or your family down: not at all 7. Trouble concentrating on things, such as reading the newspaper or watching television: not at all 8. Moving or speaking so slowly that other people could have noticed. Or the opposite - being so fidgety or restless that you have been moving around a lot more than usual: not at all 9. Thoughts that you would be better off or of hurting yourself in some way: not at all Total score: 0 Depression Screening Interpretation: Negative Depression Screening Done: Yes 24995 - PHQ-9 Billing: Yes Source: Developed by Drs. Riley Mckeon, Ewa Wong, Cristobal Ramey and colleagues, with an educational ameena from [employer]. Thrive Questionnaire Date Thrive assessed: 05/18/24 I am a: Patient Within the past 12 months, did the food you bought not last and you didn't have the money to get more?: Never true Within the past 12 months, did you worry whether your food would run out before you got money to buy more?: Never true Do you have trouble paying for medicines?: No Do you have trouble getting transportation to medical appointments?: No Do you have trouble paying your heating and electricity bill?: No Do you have trouble taking care of your child, family member or friend?: No Do you have trouble with day-to-day activities such as bathing, preparing meals, shopping, managing finances, etc.?: No Are you currently unemployed and looking for a job?: No Are you interested in more education?: No THRIVE Score: 0 AUDIT C Alcohol Use Questionnaire (AUDIT-C) 1. How often do you have a drink containing alcohol?: Monthly or less 2. How many drinks containing alcohol do you have on a typical day when you are drinking?: 1 or 2 3. How often do you have six or more drinks on one occasion?: Less than monthly Total Score: 2 KATTY-7 AMB Questionnaire KATTY-7 Date KATTY - 7 assessed: 05/18/24 Feeling nervous, anxious, or on edge: 0 = Not at all Not being able to stop or control worryin = Not at all Worrying too much about different things: 0 = Not at all Trouble relaxin = Not at all Being so restless that it is hard to sit still: 0 = Not at all Becoming easily annoyed or irritable: 0 = Not at all Feeling afraid as if something awful might happen: 0 = Not at all Total KATTY-7 score (0-4 normal; 5-9 mild; 10-14 moderate; 15-21 severe): 0 Source: Developed by Drs. Riley Mckeon, Ewa Wong, Cristobal Ramey and colleagues, with an educational ameena from [employer]. Physical exam (Primary Care) Vital Signs: Last Vital Signs Temp 97.5 F 05/18/24 14:09 Pulse 92 05/18/24 14:09 BP 136/70 05/18/24 14:09 Pulse Ox 97 05/18/24 14:09 Oxygen Delivery Method Room Air 05/18/24 14:09 BMI result Body Mass Index 35.3 Tobacco/Smoking Status: Tobacco use Status Tobacco use date assessed 05/18/24 05/18/24 14:09 Patient Tobacco Use Status Never used Tobacco 05/18/24 14:09 e-Cigarette/Vaping Use Never Used 05/18/24 14:09 PHQ-9: PHQ-9 Score PHQ-9: Total score 0 05/18/24 15:05 Depression Screening Interpretation: Negative Thrive Assessment: Date of Thrive Assessment Date Thrive assessed 05/18/24 05/18/24 14:09 Coding Level of Care Code New Pt Level 4 (40193) Complex EM visit Add On G2211 Diagnoses Primary hypertension I10 Hypertension type: primary hypertension History of heart valve replacement Z95.2 Elevated glucose R73.09 Family history of polyps in the colon Z83.719 Additional Codes PHQ-9 - 14540 - PHQ-9 Billing: Yes ([id number]) Assessment & Plan Assessment & Plan (1) Hypertension: Code(s): I10 - Essential (primary) hypertension Category: Medical Qualifiers: Hypertension type: primary hypertension Qualified Code(s): I10 - Essential (primary) hypertension (2) History of heart valve replacement: Comment: 1994 Code(s): Z95.2 - Presence of prosthetic heart valve Category: Surgical (3) Elevated glucose: Code(s): R73.09 - Other abnormal glucose Category: Medical (4) Family history of polyps in the colon: Code(s): Z83.719 - Family history of colon polyps, unspecified Category: Medical Plan 68 y/o to establish care Past medical, surgical & social reviewed HTN-Adequately controlled Follows with cardiology Labs ordered referral placed to GI Orders: Orders Complete Blood Count Auto Diff 05/18/24 I10 - Essential (primary) hypertension, R73.09 - Other abnormal glucose, Z95.2 - Presence of prosthetic heart valve Lipid Panel 05/18/24 I10 - Essential (primary) hypertension, R73.09 - Other abnormal glucose, Z95.2 - Presence of prosthetic heart valve Hemoglobin A1c 05/18/24 I10 - Essential (primary) hypertension, R73.09 - Other abnormal glucose, Z95.2 - Presence of prosthetic heart valve Comprehensive Met. Panel 05/18/24 I10 - Essential (primary) hypertension, R73.09 - Other abnormal glucose, Z95.2 - Presence of prosthetic heart valve Referrals Gastroenterology Referral Z83.719 - Family history of colon polyps, unspecified
[2024-05-18 14:09] VITALS: BP 136/70; PULSE 92; TEMP 36.4; O2SAT 97; BMI 35.3
== END 2024-05-18 15:20 | disposition home or self-care (01) ==
LOC: HO.HMCHD 14:02
PROVIDERS: PCP Internal Medicine; Visit Provider Internal Medicine
DX: I10 Essential (primary) hypertension (principal); Z95.2 Presence of prosthetic heart valve; R73.09 Other abnormal glucose; Z83.719 Family history of colon polyps, unspecified

== ENCOUNTER → 2024-05-18 14:01 | Outpatient (BNVA) | payer MEDICARE, BC, SELFPAY | PROVIDERS: PCP Internal Medicine; Visit Provider Internal Medicine | DX: I10 Essential (primary) hypertension (principal); I48.91 Unspecified atrial fibrillation; G47.33 Obstructive sleep apnea (adult) (pediatric); R73.09 Other abnormal glucose; Z95.2 Presence of prosthetic heart valve; Z83.719 Family history of colon polyps, unspecified | CPT/HCPCS: 96127; 99202 ==

== ENCOUNTER 2024-06-08 07:58 | Outpatient (AMB) | payer MEDICARE, BC, SELFPAY ==
--- NOTE | 2024-06-08 08:08 | MHC.OFFVISCO ---
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 Pt has been on warfarin since 1994 for mechanical aortic valve replacement / 2004 Aortic Aneurysm repair R/T Aortic Stenosis He has Arthritis and takes osteobioflex and tylenol daily -he is now aware both can affect INR values Pt enc to also be very aware of all his own meds Pt education completed with patient and his , education packet given with good verbal understanding INR: 3.6 out therapeutic range 2.5-3.5- may be due to diet of not enough greens lately Medications and supplements reviewed No changes in health, diet, medications, or supplements, Denies any signs and symptoms of bleeding or bruising or clotting. Bleeding, bruising, clotting discussed Nutritional guidance given - eat greens weekly, review food list weekly Dose: keep same dose alternating 7.5mg / 3.75mg for now F/U INR: 4 weeks - per pt request - hx of mostly stable INRs in the past Patient and verbalize understanding of instructions given Anti-Coag Initial Assessment Social Hx Patient Tobacco Use Status: Never used Tobacco alcohol intake: current (whisky 2 every evening ) Alcohol intake frequency: 0-2 drinks per day Housing: House (minimal stairs ) current occupation: retired current occupational exposures/hazards: No Fall risk assessment: No Falls in past year Cardiovascular Hx: HTN and Other (aortic stenosis 1994 aortic valve replacement / 2004 Aortic Aneurysm repair ) Lung Disease HX: Other (sleep Apnea ) Musculoskeletal Hx: Arthritis and Gout (left knee arthoscopy- repair of meniscus ) GI Hx: Bleeding (GI, rectal) (hx of rectal bleeding when taking aspirin - father hx of colon cancer-he'sopting not to have colonscopy, enc cologuard) Cancer HX: No Psych. Illness/Depression: No Other: family hx of cancer: colon cancer - father, brother- brain and heart disease, Anti-Coag. Education Record Teaching Recipient: Family and Patient What is the easiest way to learn: Reading, Listening and Education Packet Significant other who can be involved in Teaching Process when Indicated: Erica Set Up Mechanic Heading Machines Required: No Readiness To Learn: Excellent Teaching Methods: Demonstration, Handout and Teach Back Response to Teaching: Verbalize Understanding Re-Education needs: Re-Teach (pt on warfarin since 1994) Education Intervention/Brief Description of Teaching 1. Able to state reason for taking Warfarin: Yes 2. Able to state Pain Management techniques: Yes 3. Able to state action of Warfarin.: Yes Able to state current dose, pill color, how and when Warfarin to be taken: Yes Able to identify signs of bleeding &/or clotting: Yes 4. Able to identify need to keep diet consistent in regard to vitamin K intake: Yes Able to state restriction on alcohol: Yes 5. Able to state need for compliance with PT/INR testing: Yes Describes rationale for carrying ID and wearing Medic Alert bracelet: Yes Patient instructed to monitor for excess bruising or signs/symptoms of clotting or bleeding: Yes 6. Able to state that there are drugs that interact with Warfin: Yes 7. Able to state the need to seek medical attention when illness/injury occur.: Yes Describes the need to avoid activities with high risk of injury: Yes 8. Able to state duration of treatment: Yes 9. Demonstrates understanding of notifying all providers of pending dental surgical, or other invasive procedures: Yes 10. Able to state Home Care instructions Questionnaires HAS-BLED Does the patient had uncontrolled Hypertension?: No Does the patient have renal disease?: No Does the patient have liver disease?: No Does the patient have a history of stroke?: No Has the patient had major bleeding or predisposition to bleeding?: Yes Does the patient have labile INRs?: No Is the patient over 65 years of age?: Yes Is the patient on medications that gives them a predisposition to bleeding?: Yes Does the patient use alcohol?: Yes HAS-BLED Score: 4 CHADSVASC Age: 66-74 Gender: Male Does the patient have a history of CHF?: No Does the patient have a history of Hypertension?: Yes Does the patient have a history of Stroke/TIA/Thromboembolism?: No Does the patient have a history of Vascular Disease (prior MT, PAD or aortic plaque)?: Yes (aortic stenosis) Does the patient have a history of Diabetes?: No CHADS VACS Score: 3 Suzi Prediction Score Rsk VTE Active Cancer: No Previous VTE, excluding superficial vein thrombosis: No Reduced mobility: No Already known Thrombophilic Condition: No With-in last month Trauma and/or Surgery: No Elderly 70 year or older: Yes Heart and/or Respiratory Failure: No Acute Myocardial infarction and/or Ischemic Stroke: No Acute Infection and/or Rheumatologic Disorder: No Obesity (BMI 30 or greater): No Ongoing Hormonal Treatment: No Score: 1 Suzi Score less than 4; Low Risk of VTE Suzi Score 4 or greater; High Risk of VTE Coding Level of Care Code New Patient Level 2 Diagnoses Current use of anticoagulant therapy Z79.01 Time Spent (min) 75 Assessment & Plan Assessment & Plan (1) Current use of anticoagulant therapy: Code(s): 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
[2024-06-08 09:04] LABS: Prothrombin Time Whole Bld POC 42.7 sec (11.1-13.5); ~PT, ~INR - Anti Coag Clinic 3.6 (0.9-1.1)
== END 2024-06-08 10:50 | disposition home or self-care (01) ==
LOC: HO.ACS 07:58
PROVIDERS: PCP Internal Medicine; Visit Provider Internal Medicine Medical Oncology
DX: Z79.01 Long term (current) use of anticoagulants (principal)

== ENCOUNTER → 2024-06-08 07:58 | Outpatient (BNVA) | payer MEDICARE, BC, SELFPAY | PROVIDERS: PCP Internal Medicine; Visit Provider Internal Medicine Medical Oncology | DX: Z95.2 Presence of prosthetic heart valve (principal); Z79.01 Long term (current) use of anticoagulants; Z51.81 Encounter for therapeutic drug level monitoring | CPT/HCPCS: 85610; 99202 ==

== ENCOUNTER 2024-07-06 08:05 | Outpatient (AMB) | payer MEDICARE, BC, SELFPAY ==
--- OUTSIDE RECORDS SUMMARY | 2024-07-06 08:07 | XMS_ITS ---
Author Organization [facility] Address [address] [place] [address] Care Team Providers Care Set Up / Operator Name Role Phone Brennan Ordaz MD Primary Care Provider Unavaila Riley Kidd Unavailable [phone] REASON FOR VISIT passing on referral Encounters Encounter Location Date Provider Diagnosis [facility] [address] [place] [id number] 06/01/2024 Riley Woodall Plan Of Treatment No Information Progress Notes * DANIS CORONADO DDOB: [birth year] (68 yo M)Acc No.[id number]:06/01/2024 Patient:?DANIS CORONADO :1955???Age:68 Y???Sex:Male Address:[address], [place] [address] * true * Date:? Generated for Jesica purcell/Dominic/eTransmitting on:?07/06/2024 08:07 AM EDT
[2024-07-06 08:29] LABS: Prothrombin Time Whole Bld POC 29.2 sec (11.1-13.5); ~PT, ~INR - Anti Coag Clinic 2.4 (0.9-1.1)
--- NOTE | 2024-07-06 08:37 | MHC.OFFVISCO ---
Intake Intake Visit Reasons: Anticoagulation Allergies No Known Allergies [No Known Allergies*] Allergy (Verified 07/06/24 08:23) Medication List - Last Reconciled 07/06/24 by Stacy Wadsworth RN acetaminophen (Tylenol Extra Strength) 500 mg PO Q6H PRN allopurinol 100 mg PO DAILY lisinopril 5 mg PO DAILY metoprolol succinate ER 50 mg PO DAILY [osteo bioflex PO] warfarin 7.5 mg See Protocol PO DAILY Nursing Note INR: 2.4 in therapeutic range- may have had more chocolate than usual Medications and supplements reviewed No changes in health, diet, medications, or supplements, Denies any signs and symptoms of bleeding or bruising or clotting. Bleeding, bruising, clotting discussed Nutritional guidance given Dose: alternates 7.5mg / 3.75mg F/U INR: 4 weeks Patient and verbalizes understanding of instructions given Anti-Coag Initial Assessment Social Hx Patient Tobacco Use Status: Never used Tobacco alcohol intake: current (whisky 2 every evening ) Alcohol intake frequency: 0-2 drinks per day Cardiovascular Hx: HTN and Other (aortic stenosis 1994 aortic valve replacement / 2004 Aortic Aneurysm repair ) Lung Disease HX: Other (sleep Apnea ) Musculoskeletal Hx: Arthritis and Gout (left knee arthoscopy- repair of meniscus ) GI Hx: Bleeding (GI, rectal) (hx of rectal bleeding when taking aspirin - father hx of colon cancer-he'sopting not to have colonscopy, enc cologuard) Cancer HX: No Psych. Illness/Depression: No Coding Level of Care Code Est Patient Level 1 Diagnoses Current use of anticoagulant therapy Z79.01 Results AMB INR Fingerstick AMB INR Fingerstick 2.4 Last Edit by Stacy Wadsworth RN on 07/06/24 08:34 manual entry Assessment & Plan Assessment & Plan (1) Current use of anticoagulant therapy: Code(s): Z79.01 - group home (current) use of anticoagulants Category: Medical
== END 2024-07-06 08:42 | disposition home or self-care (01) ==
LOC: HO.ACS 08:05
PROVIDERS: PCP Internal Medicine; Visit Provider Internal Medicine Medical Oncology
DX: Z79.01 Long term (current) use of anticoagulants (principal)

== ENCOUNTER → 2024-07-06 08:05 | Outpatient (BNVA) | payer MEDICARE, BC, SELFPAY | PROVIDERS: PCP Internal Medicine; Visit Provider Internal Medicine Medical Oncology | DX: Z95.2 Presence of prosthetic heart valve (principal); Z79.01 Long term (current) use of anticoagulants; Z51.81 Encounter for therapeutic drug level monitoring | CPT/HCPCS: 85610; 99211 ==

== ENCOUNTER 2024-08-03 08:09 | Outpatient (AMB) | payer MEDICARE, BC, SELFPAY ==
[2024-08-03 08:19] LABS: Prothrombin Time Whole Bld POC 35.3 sec (11.1-13.5); ~PT, ~INR - Anti Coag Clinic 2.9 (0.9-1.1)
--- OUTSIDE RECORDS SUMMARY | 2024-08-03 08:19 | XMS_ITS | Patient Health Record ---
Author Organization [facility] Address [address] [place] [address] Care Team Providers Care Postdoctoral Research Associate Name Role Phone Brennan Ordaz MD Primary Care Provider Unavaila Riley Kidd Unavailable [phone] Reason For Referral No Information Medications Medication SIG (Take, Route, Frequency, Duration) Notes Start Date End Date Status Metoprolol & Diet Manage Prod 50 MG as directed Orally once a day Active CeleBREX 200 MG 1 capsule with food Orally Once a day Active Lisinopril 5 MG 1 tablet Orally Once a day Active Warfarin Sodium 7.5 MG 1 tablet Orally O nce a day Active Glucosamine 500 MG 1 capsule with a daniella l Orally Once a day Active Tylenol Extra Strength 500 MG 1 tablet as needed Orally every 6 hrs/prn Active Aspir-81 81 MG 1 tablet Orally Once a day Active Immunizations Vaccine Route Administration Date Status Comme nts Influenza Unknown 10/26/2017 Administered Problems Problem Type SNOMED Code ICD Code Onset Dates Problem Status W/U Status Risk Notes Problem 797910067 Encounter for screening for malignant neoplasm of colon (Z12.11) Active confirmed Problem 946465943 History of adenomatous polyp of colon (Z86.010) Active confirmed Problem 943493120 Long-term (current) use of anticoagulants, INR goal 2.5-3.5 (Z79.01) Active confirmed Encounters Encounter Location Date Provider Diagnosis [facility] [address] [place] [address] 06/01/2024 Riley Woodall Plan Of Treatment Future Test Test Name Order Date COLONOSCOPY 07/15/2012 COLONOSCOPY 02/23/2018 Insurance Providers Payer Name Payer Address Payer Phone Subscriber Number Group Number Insured Name Patient Relationship to Insured Coverage Start Date Coverage End Date MEDICARE OF [place] [address] [place] [address] [id number] DANIS CORONADO Self - patient is the insured [facility] [address] [place], [place] [phone] [phone] [id number] DANIS CORONADO Self - patient is the insured Medical (General) History Medical History History ICD Code Colonoscopy 07-19-2006--diver ticulosis and internal hemorrhoids; colonoscopy in 10/2012-small tubular adenomas Aortic valve disease as below Hypertension Denies PR,DM,CVA,Lung disease,renal dise ase Sleep apnea--not using CPAP--couldn't to lerate it Surgical History Surgery Date(Month/Year) Surgery for replacement of his aortic ar ch in 2004 Back surgery x 2---Coflex spine stabiliz er put in 2016 Heart valve zlodntcmari-[id number]-[id number] l 07/21/1994 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
--- NOTE | 2024-08-03 08:24 | MHC.OFFVISCO ---
Intake Intake Visit Reasons: Anticoagulation Allergies No Known Allergies (No Known Allergies*) Allergy (Verified 08/03/24 08:11) Medication List - Last Reconciled 08/03/24 by Stacy Wadsworth RN acetaminophen (Tylenol Extra Strength) 500 mg PO Q6H PRN allopurinol 100 mg PO DAILY lisinopril 5 mg PO DAILY metoprolol succinate ER 50 mg PO DAILY [osteo bioflex PO] warfarin 7.5 mg See Protocol PO DAILY Nursing Note pt ambulates to clinic with - offers no complaints INR: 2.9 in therapeutic range 2.5-3.5 Medications and supplements reviewed No changes in health, diet, medications, or supplements, Denies any signs and symptoms of bleeding or bruising or clotting. Bleeding, bruising, clotting discussed Nutritional guidance given Dose: keep same alternating dose 7.5/3.75mg he has been using for years F/U INR: 1 month Patient verbalizes understanding of instructions given Anti-Coag Initial Assessment Social Hx Patient Tobacco Use Status: Never used Tobacco alcohol intake: current (whisky 2 every evening ) Alcohol intake frequency: 0-2 drinks per day Cardiovascular Hx: HTN and Other (aortic stenosis 1994 aortic valve replacement / 2004 Aortic Aneurysm repair ) Lung Disease HX: Other (sleep Apnea ) Musculoskeletal Hx: Arthritis and Gout (left knee arthoscopy- repair of meniscus ) GI Hx: Bleeding (GI, rectal) (hx of rectal bleeding when taking aspirin - father hx of colon cancer-he'sopting not to have colonscopy, enc cologuard) Cancer HX: No Psych. 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
== END 2024-08-03 08:26 | disposition home or self-care (01) ==
LOC: HO.ACS 08:09
PROVIDERS: PCP Internal Medicine; Visit Provider Internal Medicine Medical Oncology
DX: Z79.01 Long term (current) use of anticoagulants (principal)

== ENCOUNTER → 2024-08-03 08:09 | Outpatient (BNVA) | payer MEDICARE, BC, SELFPAY | PROVIDERS: PCP Internal Medicine; Visit Provider Internal Medicine Medical Oncology | DX: Z95.2 Presence of prosthetic heart valve (principal); Z79.01 Long term (current) use of anticoagulants; Z51.81 Encounter for therapeutic drug level monitoring | CPT/HCPCS: 85610; 99211 ==

== ENCOUNTER 2024-08-31 07:57 | Outpatient (AMB) | payer MEDICARE, BC, SELFPAY ==
--- OUTSIDE RECORDS SUMMARY | 2024-08-31 07:59 | XMS_ITS | Encounter Summary ---
Author Organization [facility] Address [address] [place] [address] Phone Care Team Providers Care Auxiliary Equipment Tender Name Role Phone Brennan Ordaz MD Primary Care Provider Reason for Referral * Outpatient Procedure - Closed Specialty Diagnoses / Procedures Referred By Contac t Referred To Contact Diagnoses Hypertension, unspecified type S/P aortic valve replacement S/P ascending aortic aneurysm repair Procedures Adult Echo TTE Stephen Ospina MD Phone: tel: fax: mailto:[email or web address] Referral ID Status Reason Start Date Expiration Date Visits Re quested Visits Authorized [id number] Closed 08/16/2018 08/16/2019 1 1 Encounter Details Date Type Department Care Team (Latest Contact Info) Description 08/16/2018 Ancillary [facility] [address] [place] [address] 3rd Floor, [address] [place] [address] Stephen Ospina MD [address] [facility], [address] [address] Hypertension, unspecified type; S/P aortic valve replacement; S/P ascending aortic aneurysm repair Social History Tobacco Use Types Packs/Day Years Used Date Smoking Tobacco: Never Assessed Sex and Gender Information Value Date Recorded Sex Assigned at Not on file Legal Sex Male 10:36 PM EDT Gender Identity Not on file Sexual Orientation Not on file documented as of this encounter Plan of Treatment Upcoming Encounters Date Type Department Care Team (Late st Contact Info) Description 01/16/2025 9:30 AM EST Office Visit [facility] [address] [facility] 3rd Floor, [address] [place] [address] Stephen Ospina MD [address] [facility], [address] [place] [address] [email or web address] documented as of this encounter Results * TTE COMPREHENSIVE (08/17/2018 8:09 AM EDT) Anatomical Region Laterality Modality Heart Ultrasound us Stephen Ospina MD CV ECHO ORDERABLES Final Result documented in this encounter Visit Diagnoses Diagnosis Hypertension, unspecified type S/P aortic valve replacement Heart valve replaced by other means S/P ascending aortic aneurysm repair documented in this encounter Care Teams Auxiliary Equipment Tender Relationship Specialty Start Date End Date Brennan Ordaz MD [address] [place] [address] [address] PCP - General 11/26/16 documented as of this encounter Additional Source Comments The information contained in this document represents components of the legal health record. It is not the complete legal health record.[facility]
--- OUTSIDE RECORDS SUMMARY | 2024-08-31 07:59 | XMS_ITS | Patient Health Record ---
Author Organization [facility] Address [address] [place] [address] Care Team Providers Care Drop Tester Name Role Phone Sushma (RETIRED) Brennan WYATT Primary Care Provide r Riley Beasley Unavailable [phone] Reason For Referral No Information Medications Medication [...] Problem Status W/U Status Risk Notes Problem [id number] Encounter for screening for malignant neoplasm of colon (Z12.11) Active confirmed Problem 304429232 History of adenomatous polyp of colon (Z86.010) Active confirmed Problem [id number] Long-term (current) use of anticoagulants, INR goal 2.5-3.5 (Z79.01) Active confirmed Encounters Encounter Location Date Provider Diagnosis [facility] [address] [place] [address] 06/01/2024 Riley Woodall Plan Of Treatment Future Test Test Name Order Date COLONOSCOPY 07/15/2012 COLONOSCOPY 02/23/2018 Insurance Providers Payer Name Payer Address Payer Phone Subscriber Number Group Number Insured Name Patient Relationship to Insured Coverage Start Date Coverage End Date MEDICARE OF [place] [address] [place] [address] [id number] DANIS CORONADO Self - patient is the insured [facility] [address] [place], [place] [id number] DANIS CORONADO Self - patient is the insured Medical (General) History Medical History History ICD Code Colonoscopy 07-19-2006--diver ticulosis and internal hemorrhoids; colonoscopy in 10/2012-small tubular adenomas Aortic valve disease as below Hypertension Denies [place],DM,CVA,Lung disease,renal dise ase Sleep apnea--not using CPAP--couldn't to lerate it Surgical History Surgery Date(Month/Year) Surgery for replacement of his aortic ar ch in 2004 Back surgery x 2---Coflex spine stabiliz er put in 2016 Heart valve myellfbgvdq-Nzzipw-umcabtviw l 07/21/1994 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
[2024-08-31 08:09] LABS: Prothrombin Time Whole Bld POC 41.9 sec (11.1-13.5); ~PT, ~INR - Anti Coag Clinic 3.5 (0.9-1.1)
--- NOTE | 2024-08-31 08:12 | MHC.OFFVISCO ---
Intake Intake Visit Reasons: Anticoagulation Allergies No Known Allergies (No Known Allergies*) Allergy (Verified 08/31/24 08:01) Medication List - Last Reconciled 08/31/24 by Fiorella Milton, RN acetaminophen (Tylenol Extra Strength) 500 mg PO Q6H PRN allopurinol 100 mg PO DAILY lisinopril 5 mg PO DAILY metoprolol succinate ER 50 mg PO DAILY [osteo bioflex PO] warfarin 7.5 mg See Protocol PO DAILY Nursing Note INR: 3.5 in therapeutic range 2.5-3.5 Medications and supplements reviewed No changes in health, diet, medications, or supplements, Denies any signs and symptoms of bleeding or bruising or clotting. Bleeding, bruising, clotting discussed Nutritional guidance given to balance foods that raise with foods that lower the INR Dose: alternating dose, this week:7.5mg X 4 days/3.75mg X 3 days next week: 3.75mg X 4 days and 7.5mg X 3 days F/U INR: 4 weeks Patient verbalizes understanding of instructions given Anti-Coag Initial Assessment Social Hx Patient Tobacco Use Status: Never used Tobacco alcohol intake: current (whisky 2 every evening ) Alcohol intake frequency: 0-2 drinks per day Cardiovascular Hx: HTN and Other (aortic stenosis 1994 aortic valve replacement / 2004 Aortic Aneurysm repair ) Lung Disease HX: Other (sleep Apnea ) Musculoskeletal Hx: Arthritis and Gout (left knee arthoscopy- repair of meniscus ) GI Hx: Bleeding (GI, rectal) (hx of rectal bleeding when taking aspirin - father hx of colon cancer-he'sopting not to have colonscopy, enc cologuard) Cancer HX: No Psych. Illness/Depression: No Coding Level of Care Code Est Patient Level 1 Diagnoses Current use of anticoagulant therapy Z79.01 Assessment & Plan Assessment & Plan (1) Current use of anticoagulant therapy: Code(s): Z79.01 - meterman (current) use of anticoagulants Category: Medical
== END 2024-08-31 08:17 | disposition home or self-care (01) ==
LOC: HO.ACS 07:57
PROVIDERS: PCP Internal Medicine; Visit Provider Internal Medicine Medical Oncology
DX: Z79.01 Long term (current) use of anticoagulants (principal)

== ENCOUNTER → 2024-08-31 07:57 | Outpatient (BNVA) | payer MEDICARE, BC, SELFPAY | PROVIDERS: PCP Internal Medicine; Visit Provider Internal Medicine Medical Oncology | DX: Z95.2 Presence of prosthetic heart valve (principal); Z79.01 Long term (current) use of anticoagulants; Z51.81 Encounter for therapeutic drug level monitoring | CPT/HCPCS: 85610; 99211 ==

== ENCOUNTER → 2024-09-29 07:56 | Outpatient (BNVA) | payer MEDICARE, BC, SELFPAY | PROVIDERS: PCP Internal Medicine; Visit Provider Internal Medicine Medical Oncology | DX: Z51.81 Encounter for therapeutic drug level monitoring (principal); Z79.01 Long term (current) use of anticoagulants | CPT/HCPCS: 85610; 99211 ==

== ENCOUNTER 2024-10-27 07:55 | Outpatient (AMB) | payer MEDICARE, BC, SELFPAY ==
--- OUTSIDE RECORDS SUMMARY | 2024-10-27 07:57 | XMS_ITS | Clinical Summary ---
Author Organization [facility] Address [address] [place] [address] Phone Care Team Providers Care Geospatial Program Management Officer Name Role Phone Brennan Ordaz MD Primary Care Provider Allergies No known active allergies Medications aspirin 81 MG EC tablet Take 1 tablet by mouth daily. Active lisinopril (PRINIVIL,ZESTRI L) 5 MG tablet Take 1 tablet by mouth daily. Active metoprolol succinate (TOPROL-XL) 50 MG 24 hr tablet Take 1 tablet by mouth daily. Active GLUCOSAMINE SULFATE (GLUCOSAMINE ORAL) Active CELECOXIB (CELEBREX ORAL) Take 200 mg by mouth daily. Active warfarin (COUMADIN) 7.5 MG tablet Take 7.5 mg by mouth as directed. Active allopurinol (ZYLOPRIM) 100 MG tablet Take 1 tablet by mouth every morning. 01/07/2024 Active Active Problems Problem Noted Date Diagnosed Date Aortic valve prosthesis present 09/14/2017 Essential hypertension 09/14/2017 Assessment & Plan (01/20/2024 1:11 PM EST): Originally elevated in the office, however, at goal on my recheck. Blood pressure is well-controlled at home per patient report. Continue lisinopril and metoprolol. Status post ascending aortic aneurysm repair 08/2017 Assessment & Plan (01/20/2024 1:12 PM EST): Status post repair in 2004. Updated echo ordered. Status post aortic valve replacement 09/14/2017 Assessment & Plan (01/20/2024 1:13 PM EST): status post mechanical aortic [place] valve replacement in 1994. He has historically done well since. Previous echoes have shown normally functioning valve. Next echo ordered. He has continued on Coumadin. Social History Tobacco Use Types Packs/Day Years Used Date Smoking Tobacco: Never Smokeless Tobacco: Never Tobacco Cessation:Counseling Given: Not Answered Alcohol Use Standard Drinks/Week Comments Yes 0 (1 standard drink = 0.6 oz pur e alcohol) Education Answer Date Recorded Are you interested in more education? Not on justyn e 06/05/2022 Are you concerned about learning? Not on file 06/05/2022 No 06/05/2022 No 06/05/2022 Digital Access Answer Date Recorded No 07/04/2022 No 07/04/2022 Reliable internet access at home? Not on file 07/04/2022 Device with a working camera? Not on file Sex and Gender Information Value Date Recorded Sex Assigned at Not on file Legal Sex Male 10:36 PM EDT Gender Identity Not on file Sexual Orientation Not on file Last Filed Vital Signs Vital Sign Reading Time Taken Comments Blood Pressure 150/76 01/18/2024 1:23 PM EST Pulse 72 01/18/2024 1:23 PM EST Temperature 36.4 C (97.6 F) 04/23/2018 10:23 AM EDT Respiratory Rate - - Oxygen Saturation 98% 01/18/2024 1:23 PM EST Inhaled Oxygen Concentration - - Weight 97.5 kg (215 lb) 01/18/2024 1:23 PM EST Height 167.6 cm (5' 5.98 ) 01/18/2024 1:23 PM ES T Body Mass Index 34.72 01/18/2024 1:23 PM EST Plan of Treatment Upcoming Encounters Date Type Department Care Team (Late st Contact Info) Description 01/16/2025 9:30 AM EST Office Visit [facility] [address] [place] [address] 3rd Floor, [address] [place], [place] [address] Stephen Ospina MD [address] [facility], [address] [place] [address] Health Maintenance Due Date Last Done Comments Adult Td,Tdap Booster 1953 CREATININE LEVEL 1953 POTASSIUM LEVEL 1953 DEPRESSION SCREENING 1965 HEPATITIS C SCREENING 09/04/1971 COLOGUARD 1998 COLONOSCOPY 1998 COLORECTAL CANCER SCREENING 1998 FIT TEST 1998 FOBT 1998 SIGMOIDOSCOPY 1998 VIRTUAL COLONOSCOPY 1998 PNEUMOCOCCAL VACCINES (50+ years) (1 of 1 - PCV) 09/04/2003 ZOSTER VACCINES (1 of 2) 09/04/2003 LIPID PANEL 05/26/2019 05/25/2018 BLOOD PRESSURE 07/18/2024 01/18/2024 INFLUENZA VACCINE (#1) 2024 10/14/2018 COVID-19 VACCINE (4 - 2024-2 6 season) 2024 06/02/2021, 12/05/2020, 05/02/2020 RSV VACCINE (1 - 1-dose 75+ series) 2028 SMOKING STATUS SCREENING (On ce After 26 Yrs) Completed 01/18/2024 HEPATITIS A VACCINES Aged Out No long er eligible based on patient's age to complete this topic HIB VACCINES Aged Out No longer eligi ble based on patient's age to complete this topic MENINGOCOCCAL VACCINES (ACWY) Aged Out No longer eligible based on patient's age to complete this topic MENINGOCOCCAL VACCINES (B) Aged Out N o longer eligible based on patient's age to complete this topic Medical Devices Not on file Insurance [facility] FEDERAL MEDICARE PART A & B MEDICARE PART A & [place] [address] [place] [address] MEDICARE PART A & B [facility] MEDICARE PART A & [place] [address] [place] [address] MEDICARE PART A & B [facility] MEDICARE PART A & [place] [address] [place] [address] MEDICARE PART A & B [facility] MEDICARE PART A & B [facility] MEDICARE PART A & B Member Subscriber Plan / Payer (Ef fective 2015-Present) Name:Yazan Larry Member ID:[id number] Relation to Subscriber:Self Name:HandLarry Subscriber ID:[id number] Payer ID:[id number] Group ID:Not on file Type:Medicare Address: [employer] [address] [place] [id number] Care Teams Geospatial Program Management Officer Relationship Specialty Start Date End Date Brennan Ordaz MD [address] [place] [address] [place] [address] PCP - General 11/26/16 Additional Source Comments The information contained in this document represents components of the legal health record. It is not the complete legal health record.[facility]
--- OUTSIDE RECORDS SUMMARY | 2024-10-27 07:57 | XMS_ITS | Encounter Summary ---
Author Organization [facility] Address [address] [place] [address] Phone Care Team Providers Care Stockroom Keeper Name Role Phone Brennan Ordaz MD Primary Care Provider Encounter Details Date Type Department Care Team (Late st Contact Info) Description 01/18/2024 Procedure Pass Echo Lab [address] [place] [address] Social History Tobacco Use Types Packs/Day Years Used Date Smoking Tobacco: Never Smokeless Tobacco: Never Alcohol Use Standard Drinks/Week Comments Yes 0 [...] Description 01/16/2025 9:30 AM EST Office Visit [facility] [address] [place] [address] 3rd Floor, [address] [place] [address] Stephen Ospina MD [address] [facility], [address] [place] [address] [email or web address] documented as of this encounter Visit Diagnoses Not on filedocumented in this encounter Care Teams Stockroom Keeper Relationship Specialty Start Date End Date Brennan Ordaz MD [address] [place] [address] [place] [address] PCP - General 11/26/16 documented as of this encounter Additional Source Comments The information contained in this document represents components of the legal health record. It is not the complete legal health record.[facility]
--- OUTSIDE RECORDS SUMMARY | 2024-10-27 07:57 | XMS_ITS | Encounter Summary ---
Author Organization [facility] Address [address] [place] [address] Phone Care Team Providers Care Md Physician Dermatologist Name Role Phone Brennan Ordaz MD Primary Care Provider Reason for Referral * Outpatient Procedure - Closed Specialty Diagnoses / Procedures Referred By Contac t Referred To Contact Diagnoses Hypertension, unspecified type S/P aortic valve replacement S/P ascending aortic aneurysm repair Procedures Adult Echo TTE Stephen Ospina MD Phone: tel: fax: mailto: Referral ID Status Reason Start Date Expiration Date Visits Re quested Visits Authorized [id number] Closed 08/16/2018 08/16/2019 1 1 Encounter Details Date Type Department Care Team (Latest Contact Info) Description 08/16/2018 Ancillary [facility] [address] [place] [address] 3rd Floor, [address] [place] [address] Stephen Ospina MD [address] [facility], [address] [address] Hypertension, unspecified type; S/P aortic valve replacement; [...] Description 01/16/2025 9:30 AM EST Office Visit [facility] [address] [facility] 3rd Floor, [address] [place] [address] Stephen Ospina MD [address] [facility], [address] [place] [address] [email or web address] documented as of this encounter Results * TTE COMPREHENSIVE (08/17/2018 8:09 AM EDT) Anatomical Region Laterality Modality Heart Ultrasound us Stephen Ospina MD CV ECHO ORDERABLES Final Result documented in this encounter Visit Diagnoses Diagnosis Hypertension, unspecified type S/P aortic valve replacement Heart valve replaced by other means S/P ascending aortic aneurysm repair documented in this encounter Care Teams Md Physician Dermatologist Relationship Specialty Start Date End Date Brennan Ordaz MD [address] [place] [address] [address] PCP - General 11/26/16 documented as of this encounter Additional Source Comments The information contained in this document represents components of the legal health record. It is not the complete legal health record.[facility]
--- OUTSIDE RECORDS SUMMARY | 2024-10-27 07:57 | XMS_ITS | Encounter Summary ---
Author Organization [facility] Address [address] [facility] [address] [place] [address] Phone Care Team Providers Care Lag Screwer Name Role Phone Brennan Ordaz MD Primary Care Provider Encounter Details Date Type Department Care Team (Late st Contact Info) Description 09/17/2022 Procedure Pass Echo Lab [address] [place] [address] Social History Tobacco Use Types Packs/Day Years [...] Description 01/16/2025 9:30 AM EST Office Visit [facility] [address] [place] [address] 3rd Floor, [address] [place] [address] Stephen Ospina MD [address] [facility], [address] [place] [address] [email or web address] documented as of this encounter Visit Diagnoses Not on filedocumented in this encounter Care Teams Lag Screwer Relationship Specialty Start Date End Date Brennan Ordaz MD [address] [place] [address] [place] [address] PCP - General 11/26/16 documented as of this encounter Additional Source Comments The information contained in this document represents components of the legal health record. It is not the complete legal health record.[facility]
[2024-10-27 08:06] LABS: Prothrombin Time Whole Bld POC 31.9 sec (11.1-13.5); ~PT, ~INR - Anti Coag Clinic 2.7 (0.9-1.1)
--- NOTE | 2024-10-27 08:09 | MHC.OFFVISCO ---
Intake Intake Visit Reasons: Anticoagulation Allergies No Known Allergies (No Known Allergies*) Allergy (Verified 10/27/24 08:01) Medication List - Last Reconciled 10/27/24 by Fiorella Milton, RN acetaminophen (Tylenol Extra Strength) 500 mg PO Q6H PRN allopurinol 100 mg PO DAILY lisinopril 5 mg PO DAILY metoprolol succinate ER 50 mg PO DAILY [osteo bioflex PO] warfarin 7.5 mg See Protocol PO DAILY Nursing Note INR: 2.7 in therapeutic range of 2.5-3.5 Medications and supplements reviewed No changes in health, diet, medications, or supplements, Denies any signs and symptoms of bleeding or bruising or clotting. Bleeding, bruising, clotting discussed Nutritional guidance given to avoid greens today and have a serving or two of the foods that raise the INR. Dose: alt days 7.5mg/3.75mg F/U INR: 4 weeks Patient verbalizes understanding of instructions given Anti-Coag Initial Assessment Social Hx Patient Tobacco Use Status: Never used Tobacco alcohol intake: current (whisky 2 every evening ) Alcohol intake frequency: 0-2 drinks per day Cardiovascular Hx: HTN and Other (aortic stenosis 1994 aortic valve replacement / 2004 Aortic Aneurysm repair ) Lung Disease HX: Other (sleep Apnea ) Musculoskeletal Hx: Arthritis and Gout (left knee arthoscopy- repair of meniscus ) GI Hx: Bleeding (GI, rectal) (hx of rectal bleeding when taking aspirin - father hx of colon cancer-he'sopting not to have colonscopy, enc cologuard) Cancer HX: No Psych. Illness/Depression: No Coding Level of Care Code Est Patient Level 1 Diagnoses Current use of anticoagulant therapy Z79.01 Assessment & Plan Assessment & Plan (1) Current use of anticoagulant therapy: Code(s): Z79.01 - termite inspector (current) use of anticoagulants Category: Medical
== END 2024-10-27 08:12 | disposition home or self-care (01) ==
LOC: HO.ACS 07:55
PROVIDERS: PCP Internal Medicine; Visit Provider Internal Medicine Medical Oncology
DX: Z79.01 Long term (current) use of anticoagulants (principal)

== ENCOUNTER → 2024-10-27 07:55 | Outpatient (BNVA) | payer MEDICARE, BC, SELFPAY | PROVIDERS: PCP Internal Medicine; Visit Provider Internal Medicine Medical Oncology | DX: Z51.81 Encounter for therapeutic drug level monitoring (principal); Z79.01 Long term (current) use of anticoagulants | CPT/HCPCS: 85610; 99211 ==

== ENCOUNTER 2024-11-24 08:02 | Outpatient (AMB) | payer MEDICARE, BC, SELFPAY ==
[2024-11-24 08:18] LABS: Prothrombin Time Whole Bld POC 31.7 sec (11.1-13.5); ~PT, ~INR - Anti Coag Clinic 2.6 (0.9-1.1)
--- NOTE | 2024-11-24 08:24 | MHC.OFFVISCO ---
Intake Intake Visit Reasons: Anticoagulation Allergies No Known Allergies (No Known Allergies*) Allergy (Verified 11/24/24 08:11) Medication List - Last Reconciled 11/24/24 by Stacy Wadsworth RN acetaminophen (Tylenol Extra Strength) 500 mg PO Q6H PRN allopurinol 100 mg PO DAILY lisinopril 5 mg PO DAILY metoprolol succinate ER 50 mg PO DAILY [osteo bioflex PO] warfarin 7.5 mg See Protocol PO DAILY Nursing Note INR: 2.6 in therapeutic range Medications and supplements reviewed No changes in health, diet, medications, or supplements, Denies any signs and symptoms of bleeding or bruising or clotting. Bleeding, bruising, clotting discussed Nutritional guidance given and reviewed Dose: keep same alternating dose 7.5/3.75mg F/U INR: 1 month Patient verbalizes understanding of instructions given Anti-Coag Initial Assessment Social Hx Patient Tobacco Use Status: Never used Tobacco alcohol intake: current (whisky 2 every evening ) Alcohol intake frequency: 0-2 drinks per day Cardiovascular Hx: HTN and Other (aortic stenosis 1994 aortic valve replacement / 2004 Aortic Aneurysm repair ) Lung Disease HX: Other (sleep Apnea ) Musculoskeletal Hx: Arthritis and Gout (left knee arthoscopy- repair of meniscus ) GI Hx: Bleeding (GI, rectal) (hx of rectal bleeding when taking aspirin - father hx of colon cancer-he'sopting not to have colonscopy, enc cologuard) Cancer HX: No Psych. Illness/Depression: No Coding Level of Care Code Est Patient Level 1 Diagnoses Current use of anticoagulant therapy Z79.01 Results AMB INR Fingerstick AMB INR Fingerstick 2.6 Last Edit by Stacy Wadsworth RN on 11/24/24 08:20 manual entry Assessment & Plan Assessment & Plan (1) Current use of anticoagulant therapy: Code(s): Z79.01 - FDC (current) use of anticoagulants Category: Medical
== END 2024-11-24 08:26 | disposition home or self-care (01) ==
LOC: HO.ACS 08:02
PROVIDERS: PCP Internal Medicine; Visit Provider Internal Medicine Medical Oncology
DX: Z79.01 Long term (current) use of anticoagulants (principal)

== ENCOUNTER → 2024-11-24 08:02 | Outpatient (BNVA) | payer MEDICARE, BC, SELFPAY | PROVIDERS: PCP Internal Medicine; Visit Provider Internal Medicine Medical Oncology | DX: Z95.2 Presence of prosthetic heart valve (principal); Z51.81 Encounter for therapeutic drug level monitoring; Z79.01 Long term (current) use of anticoagulants | CPT/HCPCS: 85610; 99211 ==

== ENCOUNTER 2024-12-22 07:54 | Outpatient (AMB) | payer MEDICARE, BC, SELFPAY ==
--- OUTSIDE RECORDS SUMMARY | 2024-12-22 07:57 | XMS_ITS | Encounter Summary ---
Author Organization [facility] Address [address] [place] [address] Phone Care Team Providers Care Tube Dispatcher Name Role Phone Brennan Ordaz MD Primary [...] Expiration Date Visits Re quested Visits Authorized [id number] Closed 08/16/2018 08/16/2019 1 1 Encounter Details Date Type Department Care Team (Latest Contact Info) Description 08/16/2018 Ancillary [facility] [address] [place] [address] 3rd Floor, [address] [place] [id number] Stephen Ospina MD [address], [address] [address] Hypertension, unspecified type; S/P aortic valve replacement; [...] Description 01/16/2025 9:30 AM EST Office Visit [facility] [address] 3rd Floor, [address] [place] [address] Stephen Ospina MD [address], [address] [place] [address] [email or web address] documented as of this encounter Results * TTE COMPREHENSIVE (08/17/2018 8:09 AM EDT) Anatomical Region Laterality Modality Heart Ultrasound us Stephen Ospina MD CV ECHO ORDERABLES Final Result documented in this encounter Visit Diagnoses Diagnosis Hypertension, unspecified type S/P aortic valve replacement Heart valve replaced by other means S/P ascending aortic aneurysm repair documented in this encounter Care Teams Tube Dispatcher Relationship Specialty Start Date End Date Brennan Ordaz MD [address] [place] [address] [address] PCP - General 11/26/16 documented as of this encounter Additional Source Comments The information contained in this document represents components of the legal health record. It is not the complete legal health record.[facility]
--- OUTSIDE RECORDS SUMMARY | 2024-12-22 07:57 | XMS_ITS | Encounter Summary ---
Author Organization [facility] Address [address] [place] [address] Phone Care Team Providers Care Pattern Molder Name Role Phone Brennan Ordaz MD Primary Care Provider Encounter Details Date Type Department Care Team (Late st Contact Info) Description 01/18/2024 Procedure Pass [facility] [address] [place] [address] Social History Tobacco Use Types Packs/Day Years [...] Description 01/16/2025 9:30 AM EST Office Visit [facility] [address] [place] [address] 3rd Floor, [address] [place] [address] Stephen Ospina MD [address] [facility], [address] [place] [address] [email or web address] documented as of this encounter Visit Diagnoses Not on filedocumented in this encounter Care Teams Pattern Molder Relationship Specialty Start Date End Date Brennan Ordaz MD [address] [place] [address] [place] [address] PCP - General 11/26/16 documented as of this encounter Additional Source Comments The information contained in this document represents components of the legal health record. It is not the complete legal health record.[facility]
--- OUTSIDE RECORDS SUMMARY | 2024-12-22 07:57 | XMS_ITS | Clinical Summary ---
Author Organization [facility] Address [address] [place] [address] Phone Care Team Providers Care Principal Technical Architect Name Role Phone Brennan Ordaz MD Primary [...] Description 01/16/2025 9:30 AM EST Office Visit [facility] [address] [place] [address] 3rd Floor, [address] [place], [place] [id number] Stephen Ospina MD [address] [facility], [address] [place] [address] Health Maintenance Due Date Last Done Comments [...] on patient's age to complete this topic IPV VACCINES Aged Out No longer eligi ble based on patient's age to complete this topic MENINGOCOCCAL VACCINES (ACWY) Aged Out No longer eligible based on patient's age to complete this topic MENINGOCOCCAL VACCINES (B) Aged Out N o longer eligible based on patient's age to complete this topic Medical Devices Not on file Insurance [place] [employer] MEDICARE PART A & B MEDICARE PART A & B FED[employer]AL MEDICARE PART A & [place] [address] [place] [address] MEDICARE PART A & [place] [address] [place] [address] MEDICARE PART A [place] [address] [place] [address] MEDICARE PART A & B Member Subscriber Plan / Payer (Ef fective 2015-Present) Name:Larry Hand Member ID:[id number] Relation to Subscriber:Self Name:Larry Hand Subscriber ID:[id number] Payer ID:[id number] Group ID:Not on file Type:Medicare Address: [employer] [address] [place] [phone] [facility] Address: [facility] [address] [place] [address] MEDICARE PART A & [place] [address] [place] [address] MEDICARE PART A [place] [address] [place] [address] MEDICARE PART A & B Care Teams Principal Technical Architect Relationship Specialty Start Date End Date Brennan Ordaz MD [address] [place] [address] [place] [address] PCP - General 11/26/16 Additional Source Comments The information contained in this document represents components of the legal health record. It is not the complete legal health record.[facility]
--- OUTSIDE RECORDS SUMMARY | 2024-12-22 07:58 | XMS_ITS | Encounter Summary ---
Author Organization [facility] Address [address] [place] [address] Phone Care Team Providers Care Nuclear Physicist Name Role Phone Brennan Ordaz MD Primary Care Provider Encounter Details Date Type Department Care Team (Late st Contact Info) Description 09/17/2022 Procedure Pass Echo Lab [address] [place] [address] Social History Tobacco Use Types Packs/Day Years [...] Description 01/16/2025 9:30 AM EST Office Visit [facility] [address] [place] [address] 3rd Floor, [address] [place] [address] Stephen Ospina MD [address] [facility], [address] [place] [address] [email or web address] documented as of this encounter Visit Diagnoses Not on filedocumented in this encounter Care Teams Nuclear Physicist Relationship Specialty Start Date End Date Brennan Ordaz MD [address] [place] [address] [place] [address] PCP - General 11/26/16 documented as of this encounter Additional Source Comments The information contained in this document represents components of the legal health record. It is not the complete legal health record.[facility]
--- OUTSIDE RECORDS SUMMARY | 2024-12-22 07:58 | XMS_ITS | Patient Health Record ---
Author Organization [facility] Address [address] [place] [address] Care Team Providers Care Wardrobe Stylist Name Role Phone Sushma (RETIRED) Brennan WYATT Primary Care Provide r Unavailable Riley Woodall Unavailable [phone] Reason For Referral No Information Medications Medication [...] Problem Status W/U Status Risk Notes Problem Screening for malignant neoplasm of colon (516630390) Encounter for screening for malignant neoplasm of colon (Z12.11) Active confirmed Problem History of adenomatous polyp of colon (270733259) History of adenomatous polyp of colon (Z86.010) Active confirmed Problem Long-term current use of anticoagulant (181034170) Long-term (current) use of anticoagulants, INR goal 2.5-3.5 (Z79.01) Active confirmed Encounters Encounter Location Date Provider Diagnosis [facility] [address] [place] [address] 06/01/2024 Riley Woodall Plan Of Treatment Future Test Test Name Order Date COLONOSCOPY 07/15/2012 COLONOSCOPY 02/23/2018 Insurance Providers Payer Name Payer Address Payer Phone Subscriber Number Group Number Insured Name Patient Relationship to Insured Coverage Start Date Coverage End Date MEDICARE OF [place] [address] [place] [address] [phone] [id number] DANIS CORONADO Self - patient is the insured [facility] [address] [place], [place] [id number] DANIS CORONADO Self - patient is the insured Medical (General) History Medical History History ICD Code Colonoscopy 07-19-2006--diver ticulosis and internal hemorrhoids; colonoscopy in 10/2012-small tubular adenomas Aortic valve disease as below Hypertension Denies NH,DM,CVA,Lung disease,renal dise ase Sleep apnea--not using CPAP--couldn't to lerate it Surgical History Surgery Date(Month/Year) Surgery for replacement of his aortic ar ch in 2004 Back surgery x 2---Coflex spine stabiliz er put in 2016 Heart valve [id number] l 07/21/1994 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
[2024-12-22 08:04] LABS: Prothrombin Time Whole Bld POC 36.6 sec (11.1-13.5); ~PT, ~INR - Anti Coag Clinic 3.0 (0.9-1.1)
--- NOTE | 2024-12-22 08:05 | MHC.OFFVISCO ---
Intake Intake Visit Reasons: Anticoagulation Allergies No Known Allergies (No Known Allergies*) Allergy (Verified 12/22/24 07:58) Medication List - Last Reconciled 12/22/24 by Fiorella Milton RN acetaminophen (Tylenol Extra Strength) 500 mg PO Q6H PRN lisinopril 10 mg PO DAILY metoprolol succinate ER 50 mg PO DAILY [osteo bioflex PO] warfarin 7.5 mg See Protocol PO DAILY Nursing Note INR: 3.0 in therapeutic range 2.5-3.5 Medications and supplements reviewed No changes in health, diet, medications, or supplements, Denies any signs and symptoms of bleeding or bruising or clotting. Bleeding, bruising, clotting discussed Nutritional guidance given Dose: alternating 3.75mg/7.5mg every other day F/U INR: 4 weeks Patient verbalizes understanding of instructions given Anti-Coag Initial Assessment Social Hx Patient Tobacco Use Status: Never used Tobacco alcohol intake: current (whisky 2 every evening ) Alcohol intake frequency: 0-2 drinks per day Cardiovascular Hx: HTN and Other (aortic stenosis 1994 aortic valve replacement / 2004 Aortic Aneurysm repair ) Lung Disease HX: Other (sleep Apnea ) Musculoskeletal Hx: Arthritis and Gout (left knee arthoscopy- repair of meniscus ) GI Hx: Bleeding (GI, rectal) (hx of rectal bleeding when taking aspirin - father hx of colon cancer-he'sopting not to have colonscopy, enc cologuard) Cancer HX: No Psych. Illness/Depression: No Coding Level of Care Code Est Patient Level 1 Diagnoses Current use of anticoagulant therapy Z79.01 Results AMB INR Fingerstick AMB INR Fingerstick 3.0 Last Edit by Fiorella Milton RN on 12/22/24 08:04 interface delay Assessment & Plan Assessment & Plan (1) Current use of anticoagulant therapy: Code(s): Z79.01 - copy editor (current) use of anticoagulants Category: Medical
== END 2024-12-22 08:10 | disposition home or self-care (01) ==
LOC: HO.ACS 07:54
PROVIDERS: PCP Physician Assistant Medical; Visit Provider Internal Medicine Medical Oncology
DX: Z79.01 Long term (current) use of anticoagulants (principal)

== ENCOUNTER → 2024-12-22 07:54 | Outpatient (BNVA) | payer MEDICARE, BC, SELFPAY | PROVIDERS: PCP Physician Assistant Medical; Visit Provider Internal Medicine Medical Oncology | DX: Z95.2 Presence of prosthetic heart valve (principal); Z51.81 Encounter for therapeutic drug level monitoring; Z79.01 Long term (current) use of anticoagulants | CPT/HCPCS: 85610; 99211 ==

== ENCOUNTER 2025-01-19 08:02 | Outpatient (AMB) | payer MEDICARE, BC, SELFPAY ==
[2025-01-19 08:09] LABS: Prothrombin Time Whole Bld POC 42.5 sec (11.1-13.5); ~PT, ~INR - Anti Coag Clinic 3.5 (0.9-1.1)
--- NOTE | 2025-01-19 08:10 | MHC.OFFVISCO ---
Intake Intake Visit Reasons: Anticoagulation Allergies No Known Allergies (No Known Allergies*) Allergy (Verified 01/19/25 08:02) Medication List - Last Reconciled 01/19/25 by Fiorella Milton RN acetaminophen (Tylenol Extra Strength) 500 mg PO Q6H PRN lisinopril 10 mg PO DAILY metoprolol succinate ER 75 mg (1.5 x 50 mg) PO DAILY [osteo bioflex PO] warfarin 7.5 mg See Protocol PO DAILY Nursing Note INR: 3.5 in therapeutic range of 2.5-3.5 Medications and supplements reviewed No changes in health, diet, medications, or supplements, Denies any signs and symptoms of bleeding or bruising or clotting. Bleeding, bruising, clotting discussed Nutritional guidance given Dose: keep same dose alternating each day 3.75mg with 7.5mg F/U INR: 4 weeks Patient verbalizes understanding of instructions given Anti-Coag Initial Assessment Social Hx Patient Tobacco Use Status: Never used Tobacco alcohol intake: current (whisky 2 every evening ) Alcohol intake frequency: 0-2 drinks per day Cardiovascular Hx: HTN and Other (aortic stenosis 1994 aortic valve replacement / 2004 Aortic Aneurysm repair ) Lung Disease HX: Other (sleep Apnea ) Musculoskeletal Hx: Arthritis and Gout (left knee arthoscopy- repair of meniscus ) GI Hx: Bleeding (GI, rectal) (hx of rectal bleeding when taking aspirin - father hx of colon cancer-he'sopting not to have colonscopy, enc cologuard) Cancer HX: No Psych. 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
== END 2025-01-19 08:14 | disposition home or self-care (01) ==
LOC: HO.ACS 08:02
PROVIDERS: PCP Physician Assistant Medical; Visit Provider Internal Medicine Medical Oncology
DX: Z79.01 Long term (current) use of anticoagulants (principal)

== ENCOUNTER → 2025-01-19 08:02 | Outpatient (BNVA) | payer MEDICARE, BC, SELFPAY | PROVIDERS: PCP Physician Assistant Medical; Visit Provider Internal Medicine Medical Oncology | DX: Z79.01 Long term (current) use of anticoagulants (principal) | CPT/HCPCS: 85610; 99211 ==